=== PATIENT | female | born 1950 | race Caucasian/White ===

== ENCOUNTER → 2022-02-07 12:40 | Outpatient (CLI) | payer MEDICARE, SELFPAY | PROVIDERS: PCP Physician Assistant Medical; Visit Provider Physician Assistant Medical | DX: E11.8 Type 2 diabetes mellitus with unspecified complications (principal) | CPT/HCPCS: 87070; 87075; 87077; 87186; 87205 ==

== ENCOUNTER → 2022-02-14 11:53 | Outpatient (CLI) | payer MEDICARE, SELFPAY ==
[2022-02-14 18:46] LABS: Add Manual Diff / Slide Review NO; Basophils Absolute Auto 100 /uL (0-100); Basophils Percent Auto 1.3 % (0-2); Eosinophils Absolute Auto 0 /uL (0-450); Eosinophils Percent Auto 0.1 % (2-4); Hematocrit 34.5 % (36-46); Lymphocytes Absolute Auto 1100 /uL (1100-4500); Mean Corpuscular HGB Conc 34.9 % (30-36); Mean Corpuscular Hemoglobin 31.8 PG (26-34); Mean Corpuscular Volume 91.2 fL (80-100); Monocytes Absolute Auto 300 /uL (0-900); Monocytes Percent Auto 5.4 % (3-14); Neutrophils Absolute Auto 4100 /uL (1500-7000); Neutrophils Percent Auto 74.2 % (50-75); Platelet Count 188 X10^3/uL (150-400); Red Blood Cell Count 3.78 X10^6/uL (4.0-5.2); Red Cell Distribution Width 13.6 % (11.6-14.8); White Blood Cell Count 5.5 X10^3/uL (4.5-11.0)
[2022-02-17 07:44] LABS: Fecal Immunochemical Test Negative (Negative)
== END ==
PROVIDERS: PCP Physician Assistant Medical; Visit Provider Physician Assistant Medical
DX: E11.9 Type 2 diabetes mellitus without complications (principal); E78.5 Hyperlipidemia, unspecified; K76.9 Liver disease, unspecified; Z13.0 Encounter for screening for diseases of the blood and blood-forming organs and certain disorders involving the immune mechanism; Z13.228 Encounter for screening for other metabolic disorders; Z13.29 Encounter for screening for other suspected endocrine disorder
CPT/HCPCS: 82274; 85025

== ENCOUNTER → 2022-02-19 10:49 | Outpatient (CLI) | payer MEDICARE, SELFPAY ==
[2022-02-19 11:43] LABS: Add Manual Diff / Slide Review NO; Basophils Absolute Auto 0 /uL (0-100); Eosinophils Absolute Auto 0 /uL (0-450); Eosinophils Percent Auto 0.1 % (2-4); Hematocrit 34.9 % (36-46); Hemoglobin 11.6 g/dL (12.0-16.0); Lymphocytes Absolute Auto 1100 /uL (1100-4500); Lymphocytes Percent Auto 27.1 % (25-40); Mean Corpuscular HGB Conc 33.3 % (30-36); Mean Corpuscular Hemoglobin 30.4 PG (26-34); Mean Corpuscular Volume 91.2 fL (80-100); Monocytes Absolute Auto 300 /uL (0-900); Monocytes Percent Auto 6.9 % (3-14); Neutrophils Absolute Auto 2600 /uL (1500-7000); Neutrophils Percent Auto 64.9 % (50-75); Platelet Count 111 X10^3/uL (150-400); Red Blood Cell Count 3.82 X10^6/uL (4.0-5.2); Red Cell Distribution Width 14.1 % (11.6-14.8); White Blood Cell Count 4.1 X10^3/uL (4.5-11.0)
[2022-02-19 12:20] LABS: TSH w/ Reflex to FT4 0.95 uIU/mL (0.47-4.68)
[2022-02-19 13:12] LABS: Hemoglobin A1C% w Est Avg Glu 5.9 % (4.0-6.0)
[2022-02-19 13:25] LABS: Alanine Aminotransferase 26 IU/L (<35); Albumin 4.5 g/dL (3.5-5.0); Albumin Globulin Ratio 1.3 (1.0-2.8); Alkaline Phosphatase 213 U/L (38-126); Aspartate Aminotransferase 39 IU/L (14-36); BUN Creatinine Ratio 21.3 (6-22); Bilirubin Total 0.6 mg/dL (0.2-1.3); Blood Urea Nitrogen 33 mg/dL (7-17); Calcium 9.6 mg/dL (8.4-10.2); Carbon Dioxide 18 mmol/L (22-32); Chloride 103 mmol/L (98-107); Cholesterol 159 mg/dL (140-199); Estimated Glomerular Filt Rate 36 mL/min (>60); Globulin 3.5 g/dL (1.7-4.1); Glucose 124 mg/dL (80-110); HDL Cholesterol 67 mg/dL (40-60); HEMOLYSIS < 15 (0-50); LDL Cholesterol Calculated 69 mg/dL (<100); Potassium 4.5 mmol/L (3.4-5.1); Sodium 136 mmol/L (137-145); Triglycerides 117 mg/dL (35-150)
== END ==
PROVIDERS: PCP Physician Assistant Medical; Referring Provider Physician Assistant Medical; Visit Provider Physician Assistant Medical
DX: E11.9 Type 2 diabetes mellitus without complications (principal); E11.8 Type 2 diabetes mellitus with unspecified complications; E78.5 Hyperlipidemia, unspecified; I10 Essential (primary) hypertension; K76.9 Liver disease, unspecified; M06.9 Rheumatoid arthritis, unspecified; R60.1 Generalized edema; Z87.898 Personal history of other specified conditions
CPT/HCPCS: 80053; 80061; 83036; 84443; 85025

== ENCOUNTER → 2022-03-13 09:43 | Outpatient (CLI) | payer MEDICARE, SELFPAY ==
[2022-03-13 20:53] LABS: Add Manual Diff / Slide Review NO; Basophils Absolute Auto 0 /uL (0-100); Basophils Percent Auto 1.1 % (0-2); Eosinophils Absolute Auto 0 /uL (0-450); Eosinophils Percent Auto 0.3 % (2-4); Hematocrit 35.6 % (36-46); Hemoglobin 11.7 g/dL (12.0-16.0); Lymphocytes Absolute Auto 1000 /uL (1100-4500); Lymphocytes Percent Auto 23.3 % (25-40); Mean Corpuscular HGB Conc 32.8 % (30-36); Mean Corpuscular Volume 91.5 fL (80-100); Monocytes Absolute Auto 300 /uL (0-900); Monocytes Percent Auto 7.1 % (3-14); Neutrophils Absolute Auto 3000 /uL (1500-7000); Neutrophils Percent Auto 68.2 % (50-75); Platelet Count 109 X10^3/uL (150-400); Red Blood Cell Count 3.89 X10^6/uL (4.0-5.2); Red Cell Distribution Width 14.2 % (11.6-14.8); White Blood Cell Count 4.4 X10^3/uL (4.5-11.0)
[2022-03-13 21:00] LABS: Alanine Aminotransferase 28 IU/L (<35); Albumin 4.4 g/dL (3.5-5.0); Albumin Globulin Ratio 1.4 (1.0-2.8); Alkaline Phosphatase 199 U/L (38-126); Aspartate Aminotransferase 40 IU/L (14-36); BUN Creatinine Ratio 23.8 (6-22); Bilirubin Total 0.7 mg/dL (0.2-1.3); Blood Urea Nitrogen 24 mg/dL (7-17); Calcium 9.8 mg/dL (8.4-10.2); Carbon Dioxide 25 mmol/L (22-32); Chloride 104 mmol/L (98-107); Estimated Glomerular Filt Rate 60 mL/min (>60); Globulin 3.2 g/dL (1.7-4.1); Glucose 126 mg/dL (80-110); HEMOLYSIS < 15 (0-50); Sodium 142 mmol/L (137-145); Total Protein 7.6 g/dL (6.3-8.2)
[2022-03-13 21:10] LABS: Creatinine Urine Random 19.8 mg/dL
[2022-03-13 21:20] LABS: Microalbumin Urine Random < 0.6 mg/dL (0-1.6)
[2022-03-13 22:08] LABS: Gamma Glutamyl Transpeptidase 81 U/L (12-43)
== END ==
PROVIDERS: PCP Physician Assistant Medical; Visit Provider Physician Assistant Medical
DX: E11.9 Type 2 diabetes mellitus without complications (principal); M79.673 Pain in unspecified foot; R79.89 Other specified abnormal findings of blood chemistry; E78.5 Hyperlipidemia, unspecified; K76.9 Liver disease, unspecified; N28.9 Disorder of kidney and ureter, unspecified; R60.9 Edema, unspecified; R74.8 Abnormal levels of other serum enzymes
CPT/HCPCS: 80053; 82043; 82570; 82977; 85025; 87070; 87075; 87077; 87147; 87186; 87205

== ENCOUNTER → 2022-03-14 10:51 | Outpatient (CLI) | payer MEDICARE, SELFPAY | PROVIDERS: PCP Physician Assistant Medical; Referring Provider Podiatrist; Visit Provider Surgery | DX: E11.621 Type 2 diabetes mellitus with foot ulcer (principal); L97.512 Non-pressure chronic ulcer of other part of right foot with fat layer exposed; E11.40 Type 2 diabetes mellitus with diabetic neuropathy, unspecified; L84 Corns and callosities | CPT/HCPCS: 11042; 87070; 87075; 87077; 87147; 87186; 87205; 99204; 99214 ==

== ENCOUNTER → 2022-03-19 10:53 | Outpatient (CLI) | payer MEDICARE, SELFPAY ==
[2022-03-19 19:36] LABS: Add Manual Diff / Slide Review NO; Basophils Absolute Auto 0 /uL (0-100); Basophils Percent Auto 0.9 % (0-2); Eosinophils Absolute Auto 0 /uL (0-450); Hematocrit 32.5 % (36-46); Hemoglobin 10.8 g/dL (12.0-16.0); Lymphocytes Absolute Auto 900 /uL (1100-4500); Mean Corpuscular HGB Conc 33.1 % (30-36); Mean Corpuscular Volume 90.6 fL (80-100); Monocytes Absolute Auto 300 /uL (0-900); Monocytes Percent Auto 8.1 % (3-14); Neutrophils Absolute Auto 2300 /uL (1500-7000); Platelet Count 102 X10^3/uL (150-400); Red Blood Cell Count 3.58 X10^6/uL (4.0-5.2); Red Cell Distribution Width 14.6 % (11.6-14.8); White Blood Cell Count 3.5 X10^3/uL (4.5-11.0)
[2022-03-19 19:42] LABS: C-Reactive Protein Quant 0.8 mg/dL (<1.0)
[2022-03-19 20:01] LABS: Erythrocyte Sedimentation Rate 32 MM/HR (0-20)
== END ==
PROVIDERS: PCP Physician Assistant Medical; Visit Provider Nurse Practitioner Family
DX: E11.9 Type 2 diabetes mellitus without complications (principal); E11.621 Type 2 diabetes mellitus with foot ulcer; E11.8 Type 2 diabetes mellitus with unspecified complications; L97.509 Non-pressure chronic ulcer of other part of unspecified foot with unspecified severity
CPT/HCPCS: 85025; 85651; 86140

== ENCOUNTER → 2022-03-21 08:46 | Outpatient (CLI) | payer MEDICARE, SELFPAY | PROVIDERS: PCP Physician Assistant Medical; Referring Provider Podiatrist; Visit Provider Nurse Practitioner Family | DX: E11.621 Type 2 diabetes mellitus with foot ulcer (principal); L97.512 Non-pressure chronic ulcer of other part of right foot with fat layer exposed; E11.40 Type 2 diabetes mellitus with diabetic neuropathy, unspecified; L84 Corns and callosities | CPT/HCPCS: 11042 ==

== ENCOUNTER → 2022-03-28 10:57 | Outpatient (CLI) | payer MEDICARE, SELFPAY | PROVIDERS: PCP Physician Assistant Medical; Referring Provider Physician Assistant Medical; Visit Provider Nurse Practitioner Family | DX: E11.621 Type 2 diabetes mellitus with foot ulcer (principal); L97.512 Non-pressure chronic ulcer of other part of right foot with fat layer exposed; E11.40 Type 2 diabetes mellitus with diabetic neuropathy, unspecified | CPT/HCPCS: 15275; Q4196 ==

== ENCOUNTER → 2022-04-03 11:22 | Outpatient (CLI) | payer MEDICARE, SELFPAY | PROVIDERS: PCP Physician Assistant Medical; Referring Provider Physician Assistant Medical; Visit Provider Surgery | DX: E11.621 Type 2 diabetes mellitus with foot ulcer (principal); L97.512 Non-pressure chronic ulcer of other part of right foot with fat layer exposed | CPT/HCPCS: 99213 ==

== ENCOUNTER → 2022-04-11 11:03 | Outpatient (CLI) | payer MEDICARE, SELFPAY | PROVIDERS: PCP Physician Assistant Medical; Referring Provider Physician Assistant Medical; Visit Provider Nurse Practitioner Family | DX: E11.621 Type 2 diabetes mellitus with foot ulcer (principal); L97.512 Non-pressure chronic ulcer of other part of right foot with fat layer exposed; L84 Corns and callosities; E11.40 Type 2 diabetes mellitus with diabetic neuropathy, unspecified | CPT/HCPCS: 15275; Q4196 ==

== ENCOUNTER → 2022-04-18 08:58 | Outpatient (CLI) | payer MEDICARE, SELFPAY | PROVIDERS: PCP Physician Assistant Medical; Referring Provider Podiatrist; Visit Provider Nurse Practitioner Family | DX: E11.621 Type 2 diabetes mellitus with foot ulcer (principal); L97.512 Non-pressure chronic ulcer of other part of right foot with fat layer exposed; E11.40 Type 2 diabetes mellitus with diabetic neuropathy, unspecified; L84 Corns and callosities | CPT/HCPCS: 11042 ==

== ENCOUNTER → 2022-04-18 09:40 | Outpatient (CLI) | payer MEDICARE, SELFPAY ==
[2022-04-18 11:30] LABS: Hemoglobin 11.7 g/dL (12.0-16.0)
[2022-04-18 11:53] LABS: BUN Creatinine Ratio 30.3 (6-22); Blood Urea Nitrogen 30 mg/dL (7-17); Calcium 9.5 mg/dL (8.4-10.2); Carbon Dioxide 25 mmol/L (22-32); Chloride 99 mmol/L (98-107); Estimated Glomerular Filt Rate > 60 mL/min (>60); Glucose 111 mg/dL (80-110); HEMOLYSIS < 15 (0-50); Potassium 3.9 mmol/L (3.4-5.1); Sodium 138 mmol/L (137-145)
[2022-04-18 12:07] LABS: Creatinine Urine Random 40.8 mg/dL; Protein (Total) Urine Random < 5 mg/dL (0-12); Protein Creatinine Ratio Urine 0.12 GRAM/24H
== END ==
PROVIDERS: PCP Physician Assistant Medical; Referring Provider Student in an Organized Health Care Education/Training Program; Visit Provider Student in an Organized Health Care Education/Training Program
DX: N05.9 Unspecified nephritic syndrome with unspecified morphologic changes; D64.9 Anemia, unspecified; R80.9 Proteinuria, unspecified
CPT/HCPCS: 36415; 80048; 82570; 84156; 85014; 85018

== ENCOUNTER → 2022-04-25 09:26 | Outpatient (CLI) | payer MEDICARE, SELFPAY | PROVIDERS: PCP Physician Assistant Medical; Referring Provider Physician Assistant Medical; Visit Provider Nurse Practitioner Family | DX: E11.621 Type 2 diabetes mellitus with foot ulcer (principal); L97.512 Non-pressure chronic ulcer of other part of right foot with fat layer exposed; L84 Corns and callosities; E11.40 Type 2 diabetes mellitus with diabetic neuropathy, unspecified | CPT/HCPCS: 15275; Q4196 ==

== ENCOUNTER → 2022-05-02 13:11 | Outpatient (CLI) | payer MEDICARE, SELFPAY | PROVIDERS: PCP Physician Assistant Medical; Referring Provider Physician Assistant Medical; Visit Provider Nurse Practitioner Family | DX: L97.512 Non-pressure chronic ulcer of other part of right foot with fat layer exposed (principal); E11.621 Type 2 diabetes mellitus with foot ulcer; E11.40 Type 2 diabetes mellitus with diabetic neuropathy, unspecified; L84 Corns and callosities | CPT/HCPCS: 11042 ==

== ENCOUNTER → 2022-05-16 09:05 | Outpatient (CLI) | payer MEDICARE, SELFPAY | PROVIDERS: PCP Physician Assistant Medical; Referring Provider Podiatrist; Visit Provider Nurse Practitioner Family | DX: N18.2 Chronic kidney disease, stage 2 (mild) (principal); L97.512 Non-pressure chronic ulcer of other part of right foot with fat layer exposed; E11.621 Type 2 diabetes mellitus with foot ulcer; E11.40 Type 2 diabetes mellitus with diabetic neuropathy, unspecified; L84 Corns and callosities | CPT/HCPCS: 76770; 99213 ==

== ENCOUNTER → 2022-05-16 13:21 | Outpatient (CLI) | payer MEDICARE, SELFPAY ==
--- NOTE | 2022-05-16 | DI.US.S_ITS ---
PROCEDURE: US RENAL COMPLETE INDICATIONS: CHRONIC KIDNEY DISEASE, STAGE 2 (MILD) TECHNIQUE: Real-time scanning was performed of the kidneys and bladder, with image documentation. COMPARISON: None. FINDINGS: Kidneys: Kidneys are normal in size. Right kidney measures 10.3 cm long; left kidney measures 10.7 cm long. Right renal cortical thickness is 1.3 cm; left renal cortical thickness is 1.4 cm. Renal cortical echotexture is normal. No hydronephrosis or nephrolithiasis. No suspicious solid mass lesions. Bladder: Pre-void bladder volume is 83.2 mL. Post-void residual is 21.0 mL. Pre-void images demonstrate no intraluminal masses or stones. On pre-void images, left but not the right ureteral jets are noted with color Doppler interrogation. (Of note, ureteral jets may not be detectable in up to 25% of cases due to insufficient differences in specific gravity between ureteral and bladder urine). Miscellaneous: No free pelvic fluid. IMPRESSION: Normal renal size is and cortical thickness, no hydronephrosis or nephrolithiasis found. Mild postvoid bladder residual urine volume. Dictated by: Serjio Jones M.D. on 05/16/2022 at 15:25 Approved by: Serjio Jones M.D. on 05/16/2022 at 15:26
== END ==
PROVIDERS: PCP Physician Assistant Medical; Referring Provider Student in an Organized Health Care Education/Training Program; Visit Provider Student in an Organized Health Care Education/Training Program
DX: N18.2 Chronic kidney disease, stage 2 (mild) (principal)
CPT/HCPCS: 76770

== ENCOUNTER 2022-07-10 11:59 | Day surgery (SDC) | payer MEDICARE, SELFPAY ==
[2022-07-10 13:08] VITALS: BP 155/87; PULSE 92; RESP 16; TEMP 36.2; O2SAT 99; BMI 27.5
[2022-07-10] MEDS: LACTATED RINGERS 1,000 ML 120 ML IV (13:41)
--- NOTE | 2022-07-10 13:53 | PM.HP.1 ---
History of Present Illness History of Present Illness Date Patient Seen: 07/10/22 Time Patient Seen: 13:53 Chief complaint: [facility] [place]arrative: Soledad is a 72-year-old woman who is here for colonoscopy. Her last 1 was about 4 years ago and she had multiple polyps removed. Her father of colon cancer in his 60s. [facility] Medical History (Updated 07/10/22 @ 13:54 by Les Alicea MD) Ankle pain Colon polyps (~2017) Foot pain Hearing loss (~2019) History of urinary incontinence Liver problem Rheumatoid arthritis Vision disorder Surgical History (Updated 12/30/21 @ 20:07 by Karie Jane) Anesthesia History of left knee replacement (~07/28/16) Family History (Updated 12/30/21 @ 20:10 by Karie Jane) Father Cancer Mother Diabetes mellitus History of heart disease Hyperlipidemia Hypertension Stroke Sister Cancer Grandfather Cancer Grandmother Diabetes mellitus Grandmother Diabetes mellitus Social History household members: family Smoking Status: Former smoker alcohol intake: current Meds Home Medications and Allergies Home Medications Medication Instructions Recorded Confirmed Type allopurinol 100 mg tablet 100 mg PO DAILY #90 tabs 12/27/21 07/10/22 Rx benazepril 20 mg tablet 20 mg PO DAILY 12/27/21 07/10/22 History furosemide 20 mg tablet 20 mg PO DAILY 12/27/21 07/10/22 History gabapentin 300 mg capsule 300 mg PO BID #180 caps 12/27/21 07/10/22 Rx simvastatin 40 mg tablet 20 mg PO DAILY 02/07/22 07/10/22 History blood sugar diagnostic (FreeStyle #100 ea 04/16/22 04/16/22 Rx Test strips) blood-glucose meter (FreeStyle #1 ea 04/16/22 04/16/22 Rx [place] Lite kit) lancets 33 gauge (BD Ultra Fine #100 ea 04/16/22 04/16/22 Rx Lancets) sodium,potassium,mag sulfates 17.5 See Rx Instructions PO .COMPLEX 06/03/22 Rx gram-3.13 gram-1.6 gram oral soln #354 mL (Suprep Bowel Prep Kit) ascorbic acid (vitamin C) 250 mg 250 mg PO DAILY 07/10/22 07/10/22 History tablet (Vitamin C) milk thistle 200 mg capsule 200 mg PO BID 07/10/22 07/10/22 History multivit with 1 tab PO DAILY 07/10/22 07/10/22 History xubawvau-xmdb-JH-lutein 8 mg iron-400 mcg-300 mcg tablet (Centrum Silver Women) omega-3 fatty acids 1,000 mg PO DAILY 07/10/22 07/10/22 History turmeric 400 mg capsule mg PO 07/10/22 History vitamin B complex 1 cap PO DAILY 07/10/22 07/10/22 History Allergies Allergy/AdvReac Type Severity Reaction Status Date / Time No Known Drug Allergies Allergy Verified 04/16/22 08:44 Exam Vital Signs (past 8 hours): - 07/10/22 13:08 Temperature 97.1 F L Pulse Rate 92 H Respiratory Rate 16 Blood Pressure 155/87 H Pulse Oximetry 99 Oxygen Delivery Method Room Air Oxygen Delivery Method Room Air Const General: healthy appearing Assessment & Plan Assessment and plan (1) History of colon polyps: Status: Acute Plan Soledad is a 72-year-old woman with a history of polyps and a family history of colon cancer. We reviewed the risks and benefits of colonoscopy She would like to proceed.
--- NOTE | 2022-07-10 14:58 | P.OP.COLON_ITS ---
Operative Date/Time/Diagnoses Date of procedure: 07/10/22 Time of procedure: 14:59 Pre-op diagnosis: History of polyps Post-op diagnosis: same Procedure & Clinicians Study performed: Colonoscopy Same procedure as scheduled: Yes Surgeon: Les Alicea Procedure Notes Procedure in detail: Surgeon: Les Alicea MD Anesthesia: Rody Garcia [employer] Procedure: The patient was brought to the endoscopy suite, placed in left lateral decubitus position. The patient was connected to monitoring devices. A time-out was performed. Sedation was administered. Once the patient was adequately sedated, a digital rectal exam was performed and was normal. The scope was then inserted and advanced to the cecum where the appendiceal orifice was identified and photographed. The scope was then slowly withdrawn over greater than 6 minutes. The mucosa was thoroughly inspected. No polyps were seen. The scope was retroflexed in the rectum. No abnormalities were seen. The scope was straightened and removed. The patient was awakened and brought to recovery. Scope withdrawal time: 12 minutes Sedation time: 18 minutes EBL: 0 Findings: Normal colon Post-procedure Disposition: PACU
[2022-07-10 15:01] VITALS: BP 124/77; PULSE 74; RESP 20; TEMP 36.4; O2SAT 99
[2022-07-10 15:06] VITALS: BP 134/50; PULSE 77; RESP 20; O2SAT 98
[2022-07-10 15:11] VITALS: BP 143/79; PULSE 79; RESP 19; O2SAT 98
== END 2022-07-10 15:14 | disposition home or self-care (01) ==
PROVIDERS: PCP Physician Assistant Medical; Referring Provider Surgery; Visit Provider Surgery
PROC: 0DJD8ZZ Inspection of Lower Intestinal Tract, Via Natural or Artificial Opening Endoscopic (ICD-10-PCS; CPT 45378; principal; 2022-07-10 13:15)
DX: Z12.11 Encounter for screening for malignant neoplasm of colon (principal); Z86.010 Personal history of colon polyps; Z80.0 Family history of malignant neoplasm of digestive organs
CPT/HCPCS: G0105; 82962; J2704

== ENCOUNTER → 2022-07-29 12:25 | Outpatient (CLI) | payer MEDICARE, SELFPAY ==
--- NOTE | 2022-07-29 12:27 | DI.CT.S_ITS ---
PROCEDURE: CT CHEST WO CON INDICATIONS: pulmonary nodule TECHNIQUE: Noncontrast 5 mm thick sections acquired from the pulmonary apices to the posterior costophrenic angles. 1 mm lung window, 5 mm thick coronal and sagittal and 7 mm axial MIP reformats were then acquired. For radiation dose reduction, the following was used: automated exposure control, adjustment of mA and/or kV according to patient size. COMPARISON: CT 05/21/2021. FINDINGS: Image quality: Excellent. Lungs and pleura: A few solid pulmonary micro nodules which appear new from prior. These include: -2 mm solid nodule, anterior right upper lobe (series 3, image 80). -2 mm solid nodule, superior left lower lobe (series 3, image 105). Mediastinum: Heart size is normal. No pericardial effusion. No mediastinal adenopathy by size criteria. Thoracic aorta and central pulmonary arteries are normal in size. Esophagus is normal in caliber. No hiatal hernia. Bones and chest wall: No suspicious bony lesions. No vertebral body compression fractures. No axillary or supraclavicular adenopathy by size criteria. Thyroid gland is unremarkable . Abdomen: Interval growth of a right adrenal nodule measuring 3.9 cm, previously 3.7 cm. This has indeterminate attenuation. Borderline splenomegaly. Soft tissue mass in the right upper quadrant measuring 3.0 cm (series 2, image 55). Cirrhosis. IMPRESSION: A couple pulmonary micro nodules which appear new from prior. No suspicious pulmonary nodules. Consider 12 month follow-up if at high risk for developing lung cancer, per Fleischner Society guidelines. Large right adrenal nodule measuring 3.9 cm, previously 3.7 cm, with indeterminate attenuation. Malignancy not excluded, especially given size. Recommend MRI for further characterization (liver mass protocol, see below). Soft tissue mass in the right upper quadrant measuring 3.0 cm, not seen on prior, and indeterminate. This could be further evaluated with liver MRI with contrast. Cirrhosis with splenomegaly. Dictated by: Quincy Bowen M.D. on 08/14/2022 at 9:28 Approved by: Quincy Bowen M.D. on 08/14/2022 at 9:33
== END ==
PROVIDERS: PCP Family Medicine; Referring Provider Family Medicine; Visit Provider Family Medicine
DX: R91.8 Other nonspecific abnormal finding of lung field; R16.1 Splenomegaly, not elsewhere classified; K74.60 Unspecified cirrhosis of liver; E11.42 Type 2 diabetes mellitus with diabetic polyneuropathy; E11.621 Type 2 diabetes mellitus with foot ulcer; L97.519 Non-pressure chronic ulcer of other part of right foot with unspecified severity
CPT/HCPCS: 71250; 73660

== ENCOUNTER → 2022-07-29 12:27 | Outpatient (CLI) | payer MEDICARE, SELFPAY ==
--- NOTE | 2022-07-29 | DI.RAD.S_ITS ---
PROCEDURE: XR TOE RT MIN 2V INDICATIONS: RULE OUT OSTEOMYELITIS TECHNIQUE: 3 views of the 1st toe(s) acquired. COMPARISON: [facility] ([place]), CR, XR FOOT RT MIN 3V, 03/19/2022, 10:35. FINDINGS: Bones: There is slight irregularity of the distal tuft of the 1st digit compared to prior exam. Soft tissues: No suspicious soft tissue densities. IMPRESSION: Slight irregularity of the distal 1st digit tuft compared to prior exam. Early developing osteomyelitis cannot be definitively excluded. Dictated by: Araceli Shafer M.D. on 07/29/2022 at 14:54 Approved by: Araceli Shafer M.D. on 07/29/2022 at 14:55
== END ==
PROVIDERS: PCP Family Medicine; Referring Provider Podiatrist Foot & Ankle Surgery; Visit Provider Podiatrist Foot & Ankle Surgery
DX: Z13.828 Encounter for screening for other musculoskeletal disorder (principal)
CPT/HCPCS: 73660

== ENCOUNTER → 2022-07-30 14:10 | Outpatient (CLI) | payer MEDICARE, SELFPAY ==
[2022-07-30 20:19] LABS: Add Manual Diff / Slide Review NO; Basophils Absolute Auto 0 /uL (0-100); Basophils Percent Auto 0.9 % (0-2); Eosinophils Absolute Auto 0 /uL (0-450); Eosinophils Percent Auto 0.1 % (2-4); Hematocrit 34.6 % (36-46); Hemoglobin 11.8 g/dL (12.0-16.0); Lymphocytes Absolute Auto 1000 /uL (1100-4500); Mean Corpuscular HGB Conc 34.1 % (30-36); Mean Corpuscular Hemoglobin 31.3 PG (26-34); Mean Corpuscular Volume 91.8 fL (80-100); Monocytes Absolute Auto 300 /uL (0-900); Monocytes Percent Auto 6.4 % (3-14); Neutrophils Absolute Auto 3500 /uL (1500-7000); Neutrophils Percent Auto 72.6 % (50-75); Platelet Count 112 X10^3/uL (150-400); Red Blood Cell Count 3.77 X10^6/uL (4.0-5.2); Red Cell Distribution Width 14.4 % (11.6-14.8); White Blood Cell Count 4.8 X10^3/uL (4.5-11.0)
[2022-07-30 20:27] LABS: Alanine Aminotransferase 27 IU/L (<35); Albumin 4.3 g/dL (3.5-5.0); Albumin Globulin Ratio 1.5 (1.0-2.8); Alkaline Phosphatase 224 U/L (38-126); Aspartate Aminotransferase 37 IU/L (14-36); BUN Creatinine Ratio 21.6 (6-22); Bilirubin Total 0.7 mg/dL (0.2-1.3); Blood Urea Nitrogen 22 mg/dL (7-17); Calcium 9.5 mg/dL (8.4-10.2); Carbon Dioxide 24 mmol/L (22-32); Chloride 103 mmol/L (98-107); Estimated Glomerular Filt Rate 58 mL/min (>60); Globulin 2.8 g/dL (1.7-4.1); Glucose 112 mg/dL (80-110); HEMOLYSIS < 15 (0-50); Potassium 4.3 mmol/L (3.4-5.1); Sodium 137 mmol/L (137-145); Total Protein 7.1 g/dL (6.3-8.2); Uric Acid 6.9 mg/dL (2.5-6.2)
[2022-07-30 20:34] LABS: NT-proBNP (BNP-Adult 18+) 269 pg/mL (<125)
[2022-07-30 21:31] LABS: Folate > 20.0 ng/mL (2.76-20.0)
[2022-07-31 02:58] LABS: Free T4, Direct Thyroxine 1.06 ng/dL (0.78-2.19)
[2022-07-31 23:41] LABS: x Labcorp Estim. Avg Glu (eAG) 120 mg/dL (.); x Labcorp Hemoglobin A1c 5.8 % (4.8-5.6)
[2022-08-08 14:40] LABS: Methylmalonic Acid,Serum 148 nmol/L (0-378)
[2022-08-15 00:16] LABS: Vitamin B1 170.3 nmol/L (66.5-200.0)
== END ==
PROVIDERS: PCP Family Medicine; Visit Provider Family Medicine
DX: D69.6 Thrombocytopenia, unspecified; R60.1 Generalized edema; E11.9 Type 2 diabetes mellitus without complications; G62.9 Polyneuropathy, unspecified; I10 Essential (primary) hypertension; F10.20 Alcohol dependence, uncomplicated; R79.89 Other specified abnormal findings of blood chemistry; R06.00 Dyspnea, unspecified; M10.9 Gout, unspecified
CPT/HCPCS: 80053; 82746; 83036; 83880; 83921; 84425; 84439; 84443; 84550; 85025

== ENCOUNTER → 2022-08-12 10:59 | Outpatient (CLI) | payer MEDICARE, SELFPAY ==
--- NOTE | 2022-08-12 | DI.MRI.S_ITS ---
PROCEDURE: MR FOOT RT WO/W CON INDICATIONS: Other acute osteomyelitis, right ankle and foot TECHNIQUE: Noncontrast sagittal T1 spin echo and T2 fast spin echo with fat saturation, long-axis T1 spin echo and STIR; short-axis T1 spin echo with and without fat saturation, and T2 fast spin echo with fat saturation through the forefoot. Post-contrast short axis, long axis, and sagittal T1 spin echo with fat saturation through the forefoot. COMPARISON: [facility] CR, XR FOOT RT MIN 3V, 03/19/2022, 10:35. [facility], CR, XR TOE RT MIN 2V, 07/29/2022, 12:37. FINDINGS: Image quality: Excellent. Bones and joints: Chronic osseous irregularity is seen at the lateral portion of the tuft of the 1st distal phalanx without abnormal signal intensity or enhancement, consistent with a chronic finding. Hammertoe deformities are noted at the 2nd through 5th toes. Mild osseous edema and enhancement are seen throughout the distal phalanges of the toes. There is decreased intrinsic T1-weighted signal within the 2nd and 4th distal phalanges adjacent to apparent skin ulcers, which is suspicious for osteomyelitis. Moderate degenerative changes are seen within the interphalangeal joints of the toes as well as at the 1st metatarsophalangeal joint and metatarsal sesamoid articulations. Subchondral edema within the hallux sesamoids is most likely degenerative. Mild nonspecific osseous edema is seen within the lateral portion of the cuboid without a clearly defined fracture line. Soft tissues: Skin irregularity is seen at the distal aspect of the 4th toe with associated soft tissue edema and enhancement. There may be mild skin irregularity of the distal aspect of the 2nd toe with mild postcontrast enhancement. No focal fluid collection or abscess is seen. There is diffuse fatty infiltration of the intrinsic foot musculature, consistent with chronic denervation changes. Nonspecific soft tissue edema is seen at the dorsum of the foot. Visualized flexor and extensor tendons appear intact, without tenosynovitis. The principal Lisfranc ligament appears intact. Sagittal images demonstrate no evidence for plantar plate tears. IMPRESSION: 1. Within the distal 4th toe, there is subcutaneous edema and enhancement with suspected overlying skin ulceration. Abnormal signal intensity within the adjacent 4th distal phalanx is suspicious for osteomyelitis. 2. Similar but less prominent findings are seen at the 2nd distal phalanx, mildly suspicious for osteomyelitis. 3. Osseous edema within the lateral portion of the cuboid is suspicious for an osseous contusion or acute stress reaction. No discrete fracture line is seen. 4. Chronic remodeling is seen at the tuft of the 1st distal phalanx as seen radiographically without abnormal signal intensity, most likely related to a remote insult or chronic remodeling rather than active infection. 5. Moderate degenerative changes at the 1st metatarsophalangeal joint and metatarsal sesamoid articulations. 6. Fatty infiltration of the intrinsic foot musculature is consistent with chronic denervation changes. Approved by: Silvio Drummond M.D. on 08/12/2022 at 20:20
== END ==
PROVIDERS: PCP Family Medicine; Referring Provider Podiatrist Foot & Ankle Surgery; Visit Provider Podiatrist Foot & Ankle Surgery
DX: M86.171 Other acute osteomyelitis, right ankle and foot (principal)
CPT/HCPCS: 73720; A9579

== ENCOUNTER → 2022-08-19 16:23 | Outpatient (CLI) | payer MEDICARE, SELFPAY ==
--- NOTE | 2022-08-19 16:29 | DI.MRI.S_ITS ---
PROCEDURE: MR ABDOMEN LIVER PROTOCOL INDICATIONS: Right adrenal mass and soft tissue mass in RUQ on chest CT TECHNIQUE: Coronal HASTE, axial 2D FLASH in- and [id number]; axial breath-hold T2 FSE. Dynamic axial VIBE during the administration of contrast; post-contrast coronal VIBE or 2D FLASH with fat saturation from the hepatic dome to the iliac crests. Optional diffusion weighted imaging and ADC may be performed. COMPARISON: None. FINDINGS: Image quality: Excellent. Lung bases: No basal pleural effusions. Heart size is normal. Liver: No solid mass. Gallbladder and biliary tree: No gallstones or biliary dilation. Spleen: Normal size. Pancreas: No ductal dilation. Adrenal glands: 3.6 centimeter right adrenal nodule with signal intensity index of 42 percent. The lesion demonstrates mild T1 heterogeneous signal. Kidneys: No hydronephrosis. No solid mass. No complex renal cysts which requires follow-up. Nodes and vessels: No retroperitoneal or mesenteric adenopathy by size criteria. Aorta and inferior vena cava are normal in size. Bowel and peritoneum: Unenhanced bowel loops are normal in caliber. No free fluid. In the right upper quadrant, there is a 3.1 x 1.6 centimeter lesion without significant enhancement and no restricted diffusion, located anterior to the liver (series 12, image 34). Bones and soft tissues: No ventral hernias. Bone marrow is normal in overall signal. IMPRESSION: The right adrenal nodule has signal intensity which favors a benign adrenal adenoma. However, given size and heterogeneous intensity, pheochromocytoma or less likely adrenal cortical malignancy remain in the differential. follow-up in [address] with contrast is advised. The right upper quadrant nodule in the right upper quadrant does not demonstrate significant enhancement, and no restricted diffusion. Findings probably represent a sequela of peritoneal fat necrosis. Attention on follow-up. Dictated by: Quincy Bowen M.D. on 08/20/2022 at 8:34 Approved by: Quincy Bowen M.D. on 08/20/2022 at 8:43
== END ==
PROVIDERS: PCP Family Medicine; Referring Provider Family Medicine; Visit Provider Family Medicine
DX: E27.8 Other specified disorders of adrenal gland (principal); M79.89 Other specified soft tissue disorders
CPT/HCPCS: 74183; A9579

== ENCOUNTER → 2022-09-10 11:00 | Outpatient (CLI) | payer MEDICARE, SELFPAY ==
[2022-09-10 12:30] LABS: INR 1.1 (0.9-1.3); Prothrombin Time 12.3 SECONDS (10.1-12.7)
[2022-09-10 12:33] LABS: PTT Partial Thromboplastin Tim 34 SECONDS (26-36)
[2022-09-10 12:34] LABS: Add Manual Diff / Slide Review NO; Basophils Absolute Auto 0 /uL (0-100); Basophils Percent Auto 0.9 % (0-2); Eosinophils Absolute Auto 0 /uL (0-450); Eosinophils Percent Auto 0.3 % (2-4); Hematocrit 35.7 % (36-46); Hemoglobin 12.1 g/dL (12.0-16.0); Lymphocytes Absolute Auto 1100 /uL (1100-4500); Lymphocytes Percent Auto 20.3 % (25-40); Mean Corpuscular Hemoglobin 30.9 PG (26-34); Monocytes Absolute Auto 300 /uL (0-900); Monocytes Percent Auto 6.7 % (3-14); Neutrophils Absolute Auto 3700 /uL (1500-7000); Neutrophils Percent Auto 71.8 % (50-75); Platelet Count 101 X10^3/uL (150-400); Red Blood Cell Count 3.92 X10^6/uL (4.0-5.2); Red Cell Distribution Width 13.6 % (11.6-14.8); White Blood Cell Count 5.2 X10^3/uL (4.5-11.0)
[2022-09-10 12:39] LABS: HEMOLYSIS < 15 (0-50); Iron 91 ug/dL (37-170)
[2022-09-10 12:42] LABS: Alanine Aminotransferase 27 IU/L (<35); Albumin 4.2 g/dL (3.5-5.0); Albumin Globulin Ratio 1.5 (1.0-2.8); Alkaline Phosphatase 245 U/L (38-126); Aspartate Aminotransferase 34 IU/L (14-36); BUN Creatinine Ratio 26.2 (6-22); Bilirubin Total 0.5 mg/dL (0.2-1.3); Blood Urea Nitrogen 27 mg/dL (7-17); Calcium 9.5 mg/dL (8.4-10.2); Carbon Dioxide 29 mmol/L (22-32); Chloride 102 mmol/L (98-107); Estimated Glomerular Filt Rate 58 mL/min (>60); Globulin 2.8 g/dL (1.7-4.1); Glucose 98 mg/dL (80-110); HEMOLYSIS < 15 (0-50); Potassium 4.6 mmol/L (3.4-5.1); Sodium 138 mmol/L (137-145)
[2022-09-10 12:50] LABS: Percent Iron Saturation 34 % (15-50); Total Iron Binding Capacity 271 ug/dL (265-497); Transferrin 191 mg/dL (206-381)
[2022-09-10 12:57] LABS: Free T3, Triiodothyronine Free 3.99 pg/mL (2.77-5.27); Free T4, Direct Thyroxine 1.05 ng/dL (0.78-2.19)
[2022-09-10 13:10] LABS: Thyroid Stimulating Hormone 0.578 uIU/mL (0.47-4.68)
[2022-09-10 13:16] LABS: Ferritin 72 ng/mL (11-264)
== END ==
PROVIDERS: PCP Family Medicine; Referring Provider Family Medicine; Visit Provider Family Medicine
DX: D64.9 Anemia, unspecified; D69.6 Thrombocytopenia, unspecified; E11.9 Type 2 diabetes mellitus without complications; I10 Essential (primary) hypertension; R79.89 Other specified abnormal findings of blood chemistry; R94.4 Abnormal results of kidney function studies
CPT/HCPCS: 36415; 80053; 82728; 83540; 83550; 84439; 84443; 84481; 85025; 85610; 85730

== ENCOUNTER 2022-09-29 06:37 | Day surgery (SDC) | payer MEDICARE, SELFPAY ==
[2022-09-23 07:21] VITALS: BMI 27.6
--- NOTE | 2022-09-29 | PATH_ITS ---
[facility] Accession Number: [id number] No. of containers..01 Tissue . 01 Material submitted: . toe - RIGHT 4TH TOE . 01 Diagnosis: Right Fourth Toe, Excision: Skin with verrucous hyperkeratosis, epidermal hyperplasia, mixed inflammation, fibrosis, and focal bacterial impetiginization. - Minimal underlying osteocartilaginous tissue. Separate fragment of bone with focal marrow fibrosis and mild chronic inflammation. See comment. MRV 10/09/2022 1741 Local . 01 Comment: Multiple rounds of additional step sections are examined on block A2. The verrucous hyperkeratosis within the skin fragment could represent an irritated verruca vulgaris in the appropriate clinical setting. There is mild squamous atypia associated with the epidermal hyperplasia/verrucous hyperkeratosis, which is overall favored to be reactive in nature. The findings within the separate fragment of bone are not entirely specific; however, no evidence of acute osteomyelitis is identified within the section examined. Clinical and radiographic correlation is suggested. . 01 Electronically signed: . Marcelo Rea MD, Dermatopathologist NPI- [id number] . 01 Gross description: . The specimen is received in formalin labeled with the patient's name, , and right fourth toe, and consists of a portion of skin and soft tissue with possible underlying bone measuring 2.4 x 1.2 x 0.7 cm as well as a separate fragment of osseous tissue measuring 1.1 x 0.6 x 0.5 cm. The cutaneous surface is hamilton with an ulcerated area measuring 1.1 cm in greatest dimension grossly approaching the soft tissue margin, which is inked blue. No nail bed is grossly identified. Sectioning reveals hamilton to brown soft tissue with no underlying bone grossly identified. Sectioning the osseous tissue reveals hamilton trabecular hard tissue that is difficult to section with a scalpel. The specimen is submitted entirely as follows: A1-A2: Entire soft tissue fragment. A3: Osseous tissue following decalcification. ([id number]) /FRR 10/01/2022317 Local . 01 Pathologist provided ICD-10: R23.9 . 01 CPT . 789828, [id number] Specimen Comment: A courtesy copy of this report has been sent to [facility]ology Performed at: 01 [facility] [address] [place] [address], [place], [place] [id number] MD You Stevens MD Phone: [phone]
--- NOTE | 2022-09-29 06:38 | PM.PREOP ---
Pre-operative Note Interval Note History & Physical reviewed/Exam performed by Physician: Yes Changes to H&P: No H&P completed within 30 days and has changed as indicated here:: No changes to pre-op exam in clinic and medical clearance from primary physician. Continue with plan for right foot pes cavus, hammertoes, and chronic ulcer with osteomyelitis. Surgical plan includes: right foot hallux interphalangeal joint fusion, Penaloza tenosuspension, hammertoe arthrodesis/arthroplasty 2 and 3, and partial amputation toe 4.
[2022-09-29 06:54] VITALS: BMI 27.9
[2022-09-29 06:59] VITALS: BP 122/66; PULSE 72; RESP 16; TEMP 36.2; O2SAT 99
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
[2022-09-29] MEDS: LACTATED RINGERS 1,000 ML 42 ML IV ×2 (07:24→09:42)
[2022-09-29 07:34] LABS: Hematocrit 32.6 % (36-46); Hemoglobin 11.1 g/dL (12.0-16.0); Mean Corpuscular HGB Conc 34.1 % (30-36); Mean Corpuscular Hemoglobin 30.8 PG (26-34); Mean Corpuscular Volume 90.2 fL (80-100); Platelet Count 87 X10^3/uL (150-400); Red Blood Cell Count 3.61 X10^6/uL (4.0-5.2); Red Cell Distribution Width 13.4 % (11.6-14.8); White Blood Cell Count 3.4 X10^3/uL (4.5-11.0)
[2022-09-29] MEDS: CEFAZOLIN 2 GM/100 ML PREMIX 100 ML IV (07:55)
--- NOTE | 2022-09-29 08:19 | SUR.OPER ---
Supine on padded OR bed, head on pillow, arms secured on padded arm boards at <90 degrees abduction, legs uncrossed, safety belt over abdomen, tape over blanket over left leg. Right foot in control of surgeon.
[2022-09-29] MEDS: LIDOCAINE 1% 20 ML INJ (08:35)
[2022-09-29 12:35] VITALS: BP 108/68; PULSE 75; RESP 15; TEMP 36.5; O2SAT 97
[2022-09-29 12:42] VITALS: BP 119/68; PULSE 75; RESP 13; TEMP 36.5; O2SAT 96
[2022-09-29 12:50] VITALS: BP 111/55; PULSE 69; RESP 15; TEMP 36.4; O2SAT 98
[2022-09-29 12:53] VITALS: BP 111/56; PULSE 70; RESP 14; TEMP 36.4; O2SAT 96
--- NOTE | 2022-09-30 13:18 | P.OP_ITS ---
Operative Date/Time/Diagnoses Date of procedure: 09/29/22 Time of procedure: 07:45 Pre-op diagnosis: 1. Right foot hallux malleus 2. Right foot hammertoes, digits 2 and 3 3. Right foot pes cavus 4. Right foot osteomyelitis and chronic ulcer, digit 4 Post-op diagnosis: same Procedure & Clinicians Procedure: 1. Right foot hallux interphalangeal joint fusion and Penaloza tenosuspension 2. Right foot hammertoe arthrodesis, digits 2 and 3 3. Right foot partial amputation, toe 4 Same procedure as scheduled: Yes Indications: 1. Right foot calluses and pre-ulcerative lesions 2. Acquired deformities right foot 3. Right foot chronic with radiographic evidence of osteomyelitis 4. DM II with peripheral neuropathy Surgeon: Jakub Campbell Anesthesia Type: General Operative Notes Closure Type: primary Specimen(s): other (Right toe 4) Estimated Blood Loss (mL): 45 Blood products transfused: none Tourniquet time (min): 134 Procedure in detail: The patient was identified and consent obtained. The patient was brought to the operating room and placed on the bed in supine position. Appropriate monitors were then placed, and general anesthesia was induced. Local anesthesia was infiltrated in the right ankle. Once this was done, the right ankle and foot were then prepped and draped in the usual sterile fashion. The leg was elevated, exsanguinated, and tourniquet inflated set to 250 mmHg. Timeout was performed with the operating room all in agreement. Attention was directed to right foot, starting with the first. A long laze S incision was made using # 15 scalpel. Dissection was carried down from skin down tot the subcutaneous tissue using #15 scalpel. Care was taken to protect neurovascular structures. The extensor hallucis tendon was identified and released from the insertion site. The interphalangeal joint of hallux was prepared for fusion with sagittal saw, curette, and drill. It was then fused using two crossing 3.0 mm partially threaded cancellous screws, and position and fixation were verified under fluoroscopy. The dissection was then carried out proximally where the first metatarsophalangeal joint capsule and periosteum were reflected. Decision was made to remove the medial bony eminence. a 3.0 mm corkscrew anchor was replaced at the neck of metatarsal, and the EHL tendon und er tension was secured with suture tapes attached. The tendon was then reinforced using additional non-absorbable 2-0 FiberTape with the foot held in dorsiflexion. The surgical site was irrigated and then closed from deep to superficial 2-0 vicryl, 3-0 vicryl, and 3-0 nylon. Attention was then directed to the right second and third toes. Dorsal linear incisions were made, and dissection was carried from skin down to the level of the bone and joint, and the capsule is reflected. The head of the proximal phalanx was resected under power. The joint was then prepared using the hammer toe system from [place] [id number]. The implants were inserted per manufacture instructions, and additional k-wire was inserted for the second toe. Position and alignment were verified under fluoroscopy. The surgical site were irrigated using saline, and the EDL tendons were re-approximated using 3-0 vicryl. The incision site was then clsed using 4-0 nylon. Attention was then directed to the fourth toe. A distal Syme amputation was performed for partial amputation. The removed bone was sent to lab for evaluation by pathology and microbiology. The proximal stump appeared viable. The incision site was then irrigated copiously using saline and closed using 3-0 vicrl and 4-0 nylon. The procedure sites were cleansed and dried. Dressing included iodine soaked adaptic, fluff gauze, abdominal pads, Kerlix, and elastic bandage. The limb was then placed in posterior splint. All counts were correct. Patient tolerated procedure and anesthesia without complication. Patient was transferred to PACU hemodyanically stable. Complications: none Post-operative Condition: stable Disposition: same day surgery Plan for aftercare: NWB to right lower extremity. Take pain medications as directed. Ice behind knee every 15 min/hr. RTC as scheduled.
== END 2022-09-29 13:36 | disposition home or self-care (01) ==
PROVIDERS: Anesthesiology; PCP Family Medicine; Referring Provider Podiatrist Foot & Ankle Surgery; Visit Provider Podiatrist Foot & Ankle Surgery
PROC: (CPT 28285; principal; 2022-09-29 07:45)
PROC: (CPT 27691; 2022-09-29 07:45)
DX: M86.271 Subacute osteomyelitis, right ankle and foot (principal); M20.41 Other hammer toe(s) (acquired), right foot; E11.621 Type 2 diabetes mellitus with foot ulcer; L97.519 Non-pressure chronic ulcer of other part of right foot with unspecified severity; E11.42 Type 2 diabetes mellitus with diabetic polyneuropathy
CPT/HCPCS: 28825; 28285 ×2; 28755; 85027; 87070; 87075; 87077; 87186; 87205; J0690; J1170; J2405; J2704; J3010

== ENCOUNTER → 2022-10-10 13:21 | Outpatient (CLI) | payer MEDICARE, SELFPAY ==
--- NOTE | 2022-10-10 | DI.RAD.S_ITS ---
PROCEDURE: XR FOOT RT MIN 3V INDICATIONS: post-op evaluation of right foot TECHNIQUE: 3 views of the foot were acquired. COMPARISON: [facility], CR, XR TOE RT MIN 2V, 07/29/2022, 12:37. [facility] ([place]), CR, XR FOOT RT MIN 3V, 03/19/2022, 10:35. FINDINGS: Bones: Status post 1st metatarsus osteotomy and medial bunionectomy with placement of a micro fixation screw. Interval 1st interphalangeal arthrodesis with placement of 2 partially threaded fixation screws. Interval 2nd and 3rd proximal phalangeal osteotomies with placement of fixation hardware. Background osteoarthritic changes redemonstrated. Soft tissues: No tibiotalar joint effusion. Achilles tendon appears normal. IMPRESSION: 1. Postsurgical sequelae; otherwise no change from prior exam. Dictated by: Eric CUMMINGS Interpreted: Ramsey Andersen MD on 10/10/2022 at 14:11 Transcribed by: YELENA on 10/10/2022 at 14:13 Approved by: Ramsey Adnersen M.D. on 10/20/2022 at 17:47
== END ==
PROVIDERS: PCP Family Medicine; Referring Provider Podiatrist Foot & Ankle Surgery; Visit Provider Podiatrist Foot & Ankle Surgery
DX: Z48.89 Encounter for other specified surgical aftercare (principal)
CPT/HCPCS: 73630

== ENCOUNTER → 2022-11-14 13:22 | Outpatient (CLI) | payer MEDICARE, SELFPAY ==
--- NOTE | 2022-11-14 13:23 | DI.MG.S_ITS ---
BILATERAL DIGITAL SCREENING MAMMOGRAM 3D/2D WITH CAD: 11/14/2022 CLINICAL: Routine screening. No prior exams were available for comparison. Both breasts are heterogeneously dense, which may obscure small masses (category c / 51-75% glandular tissue). Current study was also evaluated with a Computer Aided Detection (CAD) system. No significant masses, calcifications, or other findings are seen in either breast. IMPRESSION: NEGATIVE There is no mammographic evidence of malignancy. A 1 year screening mammogram is recommended. Based on the Tyrer Cuzick model (a risk assessment model) the patient's lifetime risk is 7.4% and her 10 year risk is 5.6%. According to the ACR, ACS, and NCCN guidelines, an annual breast MRI exam along with mammogram is recommended if the patient's lifetime risk is 20% or greater. This exam was interpreted at Station ID: [id number]. NOTE: For mammograms, a report in lay terms will be sent to the patient. Approximately 15% of breast malignancies will not be visualized mammographically. In the management of a palpable breast mass, a negative mammogram must not discourage biopsy of a clinically suspicious lesion. Electronically Signed By: Corby keene/compa:11/14/2022 16:08:31 letter sent: Normal Exam ACR BI-RADS Category 1: Negative 3341F
== END ==
PROVIDERS: PCP Family Medicine; Referring Provider Family Medicine; Visit Provider Family Medicine
DX: Z12.31 Encounter for screening mammogram for malignant neoplasm of breast (principal)
CPT/HCPCS: 77063; 77067

== ENCOUNTER → 2022-12-16 11:08 | Outpatient (CLI) | payer MEDICARE, SELFPAY ==
[2022-12-16 19:02] LABS: HEMOLYSIS < 15 (0-50); Iron 104 ug/dL (37-170); Reticulocyte Count, Percent 0.9 % (1.1-2.6)
[2022-12-16 19:06] LABS: Alanine Aminotransferase 26 IU/L (<35); Albumin 4.3 g/dL (3.5-5.0); Albumin Globulin Ratio 1.3 (1.0-2.8); Alkaline Phosphatase 217 U/L (38-126); Aspartate Aminotransferase 36 IU/L (14-36); BUN Creatinine Ratio 17.3 (6-22); Bilirubin Total 0.4 mg/dL (0.2-1.3); Blood Urea Nitrogen 24 mg/dL (7-17); Calcium 9.9 mg/dL (8.4-10.2); Carbon Dioxide 23 mmol/L (22-32); Chloride 102 mmol/L (98-107); Estimated Glomerular Filt Rate 40 mL/min (>60); Globulin 3.2 g/dL (1.7-4.1); Glucose 122 mg/dL (80-110); HEMOLYSIS < 15 (0-50); Potassium 4.5 mmol/L (3.4-5.1); Sodium 136 mmol/L (137-145); Total Protein 7.5 g/dL (6.3-8.2)
[2022-12-16 19:13] LABS: Hemoglobin A1C% w Est Avg Glu 5.9 % (4.0-6.0)
[2022-12-16 19:16] LABS: Percent Iron Saturation 35 % (15-50); Total Iron Binding Capacity 299 ug/dL (265-497); Transferrin 201 mg/dL (206-381)
[2022-12-16 19:30] LABS: Add Manual Diff / Slide Review NO; Basophils Absolute Auto 0 /uL (0-100); Eosinophils Absolute Auto 0 /uL (0-450); Eosinophils Percent Auto 0.1 % (2-4); Hematocrit 35.6 % (36-46); Hemoglobin 11.9 g/dL (12.0-16.0); Lymphocytes Absolute Auto 1200 /uL (1100-4500); Lymphocytes Percent Auto 24.9 % (25-40); Mean Corpuscular HGB Conc 33.5 % (30-36); Mean Corpuscular Hemoglobin 28.9 PG (26-34); Mean Corpuscular Volume 86.3 fL (80-100); Monocytes Absolute Auto 200 /uL (0-900); Monocytes Percent Auto 4.9 % (3-14); Neutrophils Absolute Auto 3300 /uL (1500-7000); Neutrophils Percent Auto 69.1 % (50-75); Platelet Count 166 X10^3/uL (150-400); Red Blood Cell Count 4.12 X10^6/uL (4.0-5.2); Red Cell Distribution Width 14.9 % (11.6-14.8); White Blood Cell Count 4.8 X10^3/uL (4.5-11.0)
[2022-12-16 19:35] LABS: TSH w/ Reflex to FT4 0.36 uIU/mL (0.47-4.68)
[2022-12-16 19:39] LABS: Ferritin 74 ng/mL (11-264)
[2022-12-16 20:42] LABS: Free T4, Direct Thyroxine 1.35 ng/dL (0.78-2.19)
== END ==
PROVIDERS: PCP Family Medicine; Visit Provider Family Medicine
DX: E11.9 Type 2 diabetes mellitus without complications; E11.42 Type 2 diabetes mellitus with diabetic polyneuropathy; E11.22 Type 2 diabetes mellitus with diabetic chronic kidney disease; K74.60 Unspecified cirrhosis of liver; F10.20 Alcohol dependence, uncomplicated; R79.89 Other specified abnormal findings of blood chemistry
CPT/HCPCS: 80053; 82728; 83036; 83540; 83550; 84439; 84443; 85025; 85045

== ENCOUNTER → 2022-12-30 11:37 | Outpatient (CLI) | payer MEDICARE, SELFPAY ==
--- NOTE | 2022-12-30 | DI.RAD.S_ITS ---
PROCEDURE: XR FOOT RT MIN 3V INDICATIONS: Encounter for other specified surgical aftercare TECHNIQUE: 3 views of the foot were acquired. COMPARISON: [facility] ([place]), CR, XR FOOT RT MIN 3V, 10/31/2022, 14:11. FINDINGS: Bones: Stable 1st, 2nd and 3rd digit fixation hardware. Stable 1st metatarsal osteotomy changes. Pes planus deformity. Calcaneal bone spurs Soft tissues: No tibiotalar joint effusion. Achilles tendon appears normal. IMPRESSION: Stable postsurgical changes. Dictated by: Padmini Soria MD, PhD on 12/30/2022 at 13:25 Approved by: Padmini Soria MD, PhD on 12/30/2022 at 13:27
== END ==
PROVIDERS: PCP Family Medicine; Referring Provider Podiatrist Foot & Ankle Surgery; Visit Provider Podiatrist Foot & Ankle Surgery
DX: Z48.89 Encounter for other specified surgical aftercare (principal)
CPT/HCPCS: 73630

== ENCOUNTER → 2023-01-26 09:00 | Outpatient (CLI) | payer MEDICARE, SELFPAY ==
[2023-01-26 19:21] LABS: BUN Creatinine Ratio 28.3 (6-22); Blood Urea Nitrogen 26 mg/dL (7-17); Calcium 10.1 mg/dL (8.4-10.2); Carbon Dioxide 27 mmol/L (22-32); Chloride 103 mmol/L (98-107); Cholesterol 154 mg/dL (140-199); Estimated Glomerular Filt Rate > 60 mL/min (>60); Glucose 147 mg/dL (80-110); HDL Cholesterol 79 mg/dL (40-60); HEMOLYSIS < 15 (0-50); LDL Cholesterol Calculated 61 mg/dL (<100); Potassium 4.2 mmol/L (3.4-5.1); Sodium 137 mmol/L (137-145); Triglycerides 70 mg/dL (35-150)
[2023-01-26 19:50] LABS: Thyroid Stimulating Hormone 0.523 uIU/mL (0.47-4.68)
== END ==
PROVIDERS: PCP Family Medicine; Visit Provider Family Medicine
DX: E11.9 Type 2 diabetes mellitus without complications (principal); E11.42 Type 2 diabetes mellitus with diabetic polyneuropathy; E11.22 Type 2 diabetes mellitus with diabetic chronic kidney disease; K74.60 Unspecified cirrhosis of liver; F10.20 Alcohol dependence, uncomplicated; R79.89 Other specified abnormal findings of blood chemistry
CPT/HCPCS: 80048; 80061; 84443

== ENCOUNTER → 2023-03-13 12:17 | Outpatient (CLI) | payer MEDICARE, SELFPAY ==
[2023-03-13 13:48] LABS: Add Manual Diff / Slide Review NO; Basophils Absolute Auto 0 /uL (0-100); Basophils Percent Auto 0.4 % (0-2); Eosinophils Absolute Auto 0 /uL (0-450); Eosinophils Percent Auto 0.1 % (2-4); Hematocrit 35.4 % (36-46); Hemoglobin 12.1 g/dL (12.0-16.0); Lymphocytes Absolute Auto 1300 /uL (1100-4500); Lymphocytes Percent Auto 21.5 % (25-40); Mean Corpuscular HGB Conc 34.1 % (30-36); Mean Corpuscular Hemoglobin 28.9 PG (26-34); Mean Corpuscular Volume 84.8 fL (80-100); Monocytes Absolute Auto 400 /uL (0-900); Monocytes Percent Auto 7.2 % (3-14); Neutrophils Absolute Auto 4200 /uL (1500-7000); Neutrophils Percent Auto 70.8 % (50-75); Platelet Count 128 X10^3/uL (150-400); Red Blood Cell Count 4.18 X10^6/uL (4.0-5.2); Red Cell Distribution Width 14.7 % (11.6-14.8)
[2023-03-13 14:04] LABS: Albumin 4.2 g/dL (3.5-5.0); BUN Creatinine Ratio 24.2 (6-22); Blood Urea Nitrogen 24 mg/dL (7-17); Calcium 9.7 mg/dL (8.4-10.2); Carbon Dioxide 27 mmol/L (22-32); Chloride 101 mmol/L (98-107); Estimated Glomerular Filt Rate > 60 mL/min (>60); Glucose 137 mg/dL (80-110); HEMOLYSIS < 15 (0-50); Potassium 4.1 mmol/L (3.4-5.1); Sodium 137 mmol/L (137-145)
[2023-03-13 14:13] LABS: Hemoglobin A1C% w Est Avg Glu 6.3 % (4.0-6.0); Prealbumin 18.3 mg/dL (17.6-36.0)
[2023-03-13 17:31] LABS: Vitamin D 25 Hydroxy (D3) 51.5 ng/mL (30.0-100.0)
== END ==
LOC: LAB 12:19
PROVIDERS: PCP Family Medicine; Referring Provider Orthopaedic Surgery Adult Reconstructive Orthopaedic Surgery; Visit Provider Orthopaedic Surgery Adult Reconstructive Orthopaedic Surgery
DX: Z01.818 Encounter for other preprocedural examination (principal); E55.9 Vitamin D deficiency, unspecified; R73.9 Hyperglycemia, unspecified; Z01.812 Encounter for preprocedural laboratory examination; R77.0 Abnormality of albumin
CPT/HCPCS: 36415; 80048; 82040; 82306; 83036; 84134; 85025; 93005

== ENCOUNTER 2023-04-13 10:29 | Day surgery (SDC) | payer MEDICARE, SELFPAY ==
[2023-04-08 13:51] VITALS: BMI 28.1
[2023-04-13] VITALS (14 sets, daily range): BP systolic 111–155; BP diastolic 53–81; PULSE 76–109; RESP 14–18; TEMP 35.7–36.5; O2SAT 96–100; BMI 28.1
--- NOTE | 2023-04-13 06:00 | DI.RAD.S_ITS ---
PROCEDURE: XR KNEE RT 1TO2V INDICATIONS: TKA TECHNIQUE: 2 view(s) of the knee acquired. COMPARISON: None. FINDINGS: Bones: Patient is status post knee joint arthroplasty. Hardware components are in expected positions. Visualized bony structures are intact. Soft tissues: Overlying postoperative changes are noted. IMPRESSION: Expected post-operative appearance of a knee arthroplasty. Dictated by: Adryan Martell M.D. on 04/13/2023 at 16:22 Approved by: Adryan Martell M.D. on 04/13/2023 at 16:22
[2023-04-13] MEDS: ACETAMINOPHEN 325 MG TABLET 975 MG PO (10:45)
[2023-04-13] MEDS: LACTATED RINGERS 1,000 ML 42 ML IV (10:45)
[2023-04-13] MEDS: MELOXICAM 7.5 MG TABLET PO ×2 (10:45→10:46)
--- NOTE | 2023-04-13 10:55 | PM.PREOP ---
Pre-operative Note Interval Note History & Physical reviewed/Exam performed by Physician: Yes Changes to H&P: No
[2023-04-13] MEDS: TRANEXAMIC ACID 1,000 MG VIAL 2000 MG INJ ×2 (11:35→12:42)
[2023-04-13] MEDS: CEFAZOLIN 2 GM/100 ML PREMIX 100 ML IV ×2 (11:38→19:59)
--- NOTE | 2023-04-13 11:48 | SUR.OPER ---
Supine on padded OR bed. Pillow under head, arms secured on padded armboards <90 degree abduction. Safety belt across torso. Left leg secured with tape over blanket over lower leg. Operative leg secured in Steve positioner. Foam padded brace at thigh of operative leg.
[2023-04-13] MEDS: ROPIVACAINE/EPI/CLONIDINE/KET 50 ML SYRINGE INJ (11:55)
--- NOTE | 2023-04-13 13:00 | P.OP_ITS ---
Operative Date/Time/Diagnoses Date of procedure: 04/13/23 Pre-op diagnosis: Right knee arthritis Post-op diagnosis: same Procedure & Clinicians Procedure: Right total knee arthroplasty Same procedure as scheduled: Yes Surgeon: Germán Santa [employer] Trimmer: Chepe Roa Anesthesia Type: General, Spinal, Peripheral nerve block and Local Operative Notes Estimated Blood Loss (mL): 150 Tourniquet time (min): 56 Procedure in detail: Implants: Tyler Persona Medial Congruent Total Knee Arthroplasty: * Size 9 Cruciate Retaining Femoral Component * Size E Tibial Component with 14 x 30 stem extension * Size 10 Medial Congruent Polyethylene Insert * Unresurfaced Patella Procedure Summary: Varus knee with significant osteophytes. Exposure of the tibia necessitated what was functionally a medial reduction osteotomy. The knee registered at 3? of tightness medially in full extension after initial cuts however it would open to a symmetric 9? in both varus and valgus so additional releases were not performed. Femoral rotation balanced at 1 degree of external rotation. Extremely poor bone quality was noted so a short stem was used Procedure in Detail: This patient was seen preoperatively and evaluated for knee pain which was refractory to numerous nonoperative treatment modalities. Their hip pain correlated with radiographic changes demonstrating significant degeneration in the knee joint. The risks and benefits of continued nonoperative management versus operative management were discussed at length and all of the patient?s questions were answered. Additional educational materials providing further details beyond our discussion in clinic were provided via a publicly available patient education video which included the incidence of medical complications associated with total knee arthroplasty, reasons for revision following total knee arthroplasty, and patient satisfaction rates following total knee arthroplasty. That video can be accessed at [email or web address] . With this understanding of the risks inherent to the procedure, the patient elected to move forward with operative management. Following preoperative optimization, the patient was scheduled for surgery. The patient was met in the preoperative holding area the day of the procedure and all questions were answered. The patient?s nares were swabbed with betadine in order to decolonize them from MRSA. Informed consent was signed and the operative limb was marked with indelible ink.? The patient was brought back to the operating room where anesthesia was induced. The patient was transferred to the operating table and all bony prominences were padded. The operative site was prepped and draped in the usual sterile fashion. A second prep stick was utilized following drape placement. The incision was marked corresponding to the medial aspect of the tibial tubercle and the patella. Ioban was wrapped circumferentially around the knee. Prior to incision, tranexamic acid and cefazolin were administered. Templating images were displayed. A timeout procedure was performed verifying the patient?s identity, medical comorbidities, allergies, relevant medications, anesthesia type and the surgical plan. All present were in agreement. The assistance of a physician pharmacist assistant was required for positioning, room setup, soft tissue retraction and wound closure. Without this assistance, the procedure would have been significantly more challenging and time consuming.?? The tourniquet was inflated prior to incision. I made an anterior incision over the knee, dissected through the subcutaneous tissues and identified the lateral border of the VMO. Medial and lateral soft tissue flaps were developed. A medial parapatellar arthrotomy was performed ensuring that adequate capsular tissue would remain for closure at the conclusion of the procedure. The hip was brought into extension and the medial soft tissues were released off the joint line of the tibia. Tissue overlying the distal anterior femur was released to allow for later assessment for anterior notching but left in place. A portion of the retropatellar fat pad was excised while protecting the patellar tendon. The patella was everted. The patella was rotation. Osteophytes were excised and a lateral facetectomy was performed. The patella was released from its everted position.?? I flexed the knee to 90 degrees and placed retractors to allow access to the notch. An opening reamer was used to gain access to the femoral canal and an i ntramedullary aidan was introduced into the canal. Diaphyseal fit was obtained in order to allow a distal femoral resection at 5 degrees relative to the anatomic axis, thereby aiming to achieve mechanical alignment of the eventual implant. A +2 resection was planned and assessed using an felipe wing. I then made the cut using a sagittal saw. This provided additional access to the femoral notch. The ACL and PCL were excised. Retractors were placed on the lateral and medial tibia. I hyperflexed the knee while externally rotating it to sublux the tibia anteriorly. I placed a PCL retractor posteriorly and used this to provide additional anterior subluxation. The remainder of the PCL root was released. An intramedullary reamer was used in the ACL footprint to provide access to the tibial canal. An extramedullary guide was positioned to allow a resection perpendicular to the anatomic and mechanical axes of the tibia, thereby aiming to achieve mechanical alignment of the eventual implant. A +4 resection off the medial tibia was planned and the tibial cutting jig was pinned in place. I evaluated the cut depth, varus-valgus alignment and slope of the planned tibial resection and deemed them satisfactory. I cut the tibia with a sagittal saw while using retractors to protect the MCL, patellar tendon, and posterolateral structures.? The knee was repositioned in extension and the Fuzion soft tissue balancing gauge was introduced. This demonstrated that there was equal tension in the medial and lateral compartments of the knee with the knee in full extension and no additional soft tissue releases were necessary. When 50 pounds of force was applied to the Fuzion device, the extension gap opened to 10 mm. I moved the knee into 90 degrees of flexion, and the Fuzion device was recalibrated by removing a 9 mm claudette to allow assessment of the flexion gap. The Fuzion was placed perpendicular to the resected surface of the tibia and the resected surface of the distal femur. Fifty pounds of traction was applied to match the tension of the extension gap. This externally rotated the femur to 1 degrees. Pins were placed in the 10 mm holes. The measured resection guide was placed over the pins to allow sizing. Appropriate sizing was determined and a 4-in-1 block was placed. This was double checked using the Fuzion device to ensure that it would open to an equal distance as the extension gap when the same amount of force was applied. The Fuzion block was also used to assess flexion gap symmetry. An felipe wing was used to ensure there would be no anterior notching. Retractors were placed to protect the soft tissues during resection. Captured cuts were performed with a sagittal saw for the anterior and posterior femur as well as the corresponding chamfers.? Trial components were placed and the construct was assessed. Range of motion was assessed by ensuring the knee could achieve full extension and assessing maximum passive knee flexion by elevating the femur and allowing the heel to passively fall towards the buttock. Gap symmetry was assessed by stressing the medial and lateral compartments in both extension and flexion. Laxity was assessed in both extension and flexion and the polyethylene trial was adjusted with shims as necessary. Patellar tracking was assessed with knee flexion. Once satisfied with the construct, I moved forward with implant insertion. Lug holes were drilled in the femur and the tibia was prepped ensuring appropriate sizing and rotation relative to the tibial tubercle.?? The bony ends were irrigated and cement was prepared. Portions of the anterior chamfer cut were utilized as cement restrictors in the femur and tibia where intramedullar rods had been utilized. Cement was placed on the entirety of the undersurface of both the tibial and femoral components. Cement was placed onto the dry tibia and pressurized into the cancellous bone. I impacted the tibial component into place. Cement was removed. The tibia was reduced underneath the femur and placed cement onto the dry surface of the resected femur. I placed the femoral component as well as the intended polyethylene trial. Cement was removed from around the femur. I brought the knee into extension and manually pressurized the construct by pushing on the heel while the cement dried. The knee was bathed in a dilute mixture of betadine and peroxide. A mixture of Ropivacaine, Epinephrine, Clonidine and Toradol was infiltrated throughout the soft tissues into structures including the VMO, patellar tendon, quadriceps tendon, MCL and femoral periosteum. A low adductor canal block was also performed using this mixture unless one had been placed preoperatively by anesthesia. The knee was copiously irrigated with pulse lavage. Once cement had been allowed to dry the knee was again trialed. Range of motion was assessed by ensuring the knee could achieve full extension and assessing maximum passive knee flexion by elevating the femur and allowing the heel to passively fall towards the buttock. Gap symmetry was assessed by stressing the medial and lateral compartments in both extension and flexion. Laxity was assessed in both extension and flexion and the polyethylene trial was adjusted with shims as necessary. Patellar tracking was assessed with knee flexion. The tourniquet was let down and the polyethylene trial was removed. I inspected the knee inspected for excess cement and any residual bleeding. Once hemostasis was achieved I inserted the final polyethylene and ensured appropriate engagement of the dovetail locking mechanism.?? The arthrotomy was closed with absorbable interrupted suture ensuring that this extended to the top of the arthrotomy. This was backed up with running barbed suture throughout the arthrotomy. The skin was closed with 2-0 and 3-0 sutures. Surgical glue was applied and a soft dressing was placed.?The sponge, instrument and needle counts were reported as being correct at the end of the case.??No obvious complications occurred. The patient was transferred from the operating table back to a stretcher. The patient emerged from anesthesia without difficulty and was taken to the PACU in a stable condition.? Plan for aftercare: * Weightbearing as tolerated * Patient takes naltrexone for alcohol abstinence. We will utilize a multimodal pain regimen in an attempt to avoid the need for opioids and restart naltrexone as soon as possible postoperatively. As it is a weak opioid itself, this may provide some pain relief beyond the patient's multimodal pain regimen. Ketamine was utilized intraoperatively as an additional pain control aid * Mobilization as soon as the patient has recovered from anesthesia. If physical therapists are unavailable at the time the patient is ready to ambulate, then nursing staff should help patient ambulate * Aspirin 81 twice per day for DVT prophylaxis * Anticipate discharge home tomorrow * Follow up at [facility] in 2 weeks * Detailed postoperative instructions available at [email or web address]
--- NOTE | 2023-04-13 14:43 | PT-IP ANOTE ---
Received PT orders and completed chart review. Met with pt briefly who did not yet have good sensation or motor control of her operative limb. Plan to follow up for PT assessment on the morning of 04/14. Pt states she hopes [place] be [place].
--- NOTE | 2023-04-13 15:04 | OT.IPNOTE ---
Received OT orders and completed chart review. Per P.T., pt does not yet have good sensation or motor control of her operative limb. Plan to follow up for OT assessment on the morning of 04/14. Pt states she hopes to be discharged in [place].
[2023-04-13] MEDS: LACTATED RINGERS 1,000 ML 100 ML IV (15:11)
[2023-04-13] MEDS: IBUPROFEN 600 MG TABLET PO ×2 (15:12→19:57)
[2023-04-13] MEDS: OXYCODONE IR 5 MG TABLET PO ×2 (15:48→20:09)
[2023-04-13] MEDS: ACETAMINOPHEN 325 MG TABLET 650 MG PO (19:58)
[2023-04-13] MEDS: ASPIRIN EC 81 MG TABLET PO (20:09)
[2023-04-13] MEDS: DOCUSATE 100 MG CAPSULE PO (20:09)
[2023-04-13] MEDS: MELATONIN 3 MG TABLET 18 MG PO (20:09)
[2023-04-14 00:39] VITALS: BP 128/57; PULSE 74; RESP 18; TEMP 36.6; O2SAT 95
[2023-04-14] MEDS: IBUPROFEN 600 MG TABLET PO ×2 (00:41→09:08)
[2023-04-14] MEDS: ACETAMINOPHEN 325 MG TABLET 650 MG PO ×2 (00:41→09:07)
[2023-04-14] MEDS: LACTATED RINGERS 1,000 ML 100 ML IV (00:46)
[2023-04-14] MEDS: CEFAZOLIN 2 GM/100 ML PREMIX 100 ML IV (03:23)
[2023-04-14] MEDS: TRAMADOL 50 MG TABLET PO (03:28)
--- NOTE | 2023-04-14 04:25 | PC.NURSE ---
Pt ambulating to the bathroom with SBA and FWW. Taking adequate PO intake and urinating. IVF discontinue around 0420. Pt taking tylenol/ibuprofen every 6 hours. Did take one dose of 5 mg oxycodone and this am around 0300 she took 50 mg of Tramadol. Pt looking forward to being discharge early today around 1330 so that she can take the ferry to [facility].
[2023-04-14 04:50] VITALS: BP 132/63; PULSE 75; RESP 18; TEMP 36.6; O2SAT 94
[2023-04-14 05:27] LABS: Hematocrit 28.3 % (36-46); Hemoglobin 9.8 g/dL (12.0-16.0)
[2023-04-14 08:00] VITALS: BP 155/65; PULSE 84; RESP 18; TEMP 36.3; O2SAT 100
--- NOTE | 2023-04-14 09:00 | PT.IIE ---
Current Diagnoses Unilateral primary osteoarthritis, right knee (04/13/23) Surgery Performed Operation Date: 04/13/23 10:45 Actual Procedures p Total Knee Arthroplasty(Right) - Germán Santa MD Surgical History (Last Reviewed 04/14/23 @ 10:22 by Chepe Roa PA-C) Anesthesia History of left knee replacement (~07/28/16) Hx of foot surgery (09/29/22) Medical History (Last Reviewed 04/14/23 @ 10:22 by Chepe Roa PA-C) Alcohol use disorder Ankle pain Benign colon polyp Colon polyps (~2017) Foot pain Hearing loss (~2019) History of urinary incontinence Liver problem Rheumatoid arthritis Vision disorder Physical Therapy Inpatient Evaluation/Re-Eval M1 PT/OT-IP Prior Functional Status Start: 04/14/23 13:51 Freq: NEEDED Status: Active Protocol: Document 04/14/23 09:00 AB (Rec: 04/14/23 14:01 AB [id number]) Medical Review Prior Functional Status Medical History Reviewed Yes Communication able to make needs known Mobility and Gait pt stated that she was modified independent with all mobilities and ambulation without AD but started using a FWW ~ 2 weeks ago due to knee pain Social History Household Members family Living Arrangements House Number of Floors (Floors) One Floor Number of Stairs To Enter/Railing? No steps to enter Home Environment Standard Height Toilet,Walk in Shower Home Equipment Front Wheel Walker,Four Wheel Walker,Raised Toilet Seat Without Armrests,Shower Seat with Backrest,Hand Held Shower ,Seed Corn Manager Production,Grab Bars In Shower Additional Social History Comment pt has her sister and [place] to assist her at home M2 PT-IP Current Condition Start: 04/14/23 13:51 Freq: NEEDED Status: Active Protocol: Document 04/14/23 09:00 AB (Rec: 04/14/23 14:01 AB [id number]) Physical Therapy Current Condition Current Condition Evaluation Date 04/14/23 Treatment Diagnosis s/p R TKA;difficulty in walking Onset Date 04/13/23 M3 PT-IP Subjective Start: 04/14/23 13:51 Freq: NEEDED Status: Active Protocol: Document 04/14/23 09:00 AB (Rec: 04/14/23 14:01 AB [id number]) Subjective Physical Therapy Visit Type Type Initial Evaluation Visit Start Time 09:00 Visit Stop Time 09:32 Number of LEAD CARGO MOVER Visits 32 Physical Therapy Visit Comments Patient Comments agreeable to do PT Therapy Pain Assessment Pain When Pain Assessed At Rest Pain Present Pain Present Pain Reported Location Right Knee Intensity 7 Scale Used Numeric (0 - 10) Pain Management Techniques Apply Cold,Distraction, Elevation,Modification of Treatment,Re-positioning, Timing of Activity with Medications M4 PT-IP Mobility and Gait Start: 04/14/23 13:51 Freq: NEEDED Status: Active Protocol: Document 04/14/23 09:00 AB (Rec: 04/14/23 14:01 AB [id number]) PT-Bed Mobility Assessment Supine to Sit Supine to Sit Standby Assistance Sit to Supine Sit to Supine Standby Assistance PT-Transfer Assessment Sit to and From Stand Sit to and from Stand Standby Assistance,1 Person Assistance,Use of Upper Extremities Equipment Transfer Assistive Device Gait Belt,Front Wheeled Walker Orthotic/Prosthetic Devices or Brace: No Transfers Transfer Destination Chair Transfer Technique ambulated Transfer Ability Level of Assist Standby Assistance Comments Mobility Comments pt supine in bed and agreeable to do PT. obtained PLOF and home set up. OT already gave pt her post-op folder . Reviewed post-op folder conetents and HEP. pt completed supine to sit SBA. able to sit on EOB SBA. sit to stand from EOB SBA and ambulated in room using FWW ~ 40 ft SBA. pt requested to use the toilet. ambulated to the toilet and completed toileting SBA. sit to stand from the toilet using grab bar SBA and ambulated towards the sink using FWW SBA. able to maintain standing using FWW for support SBA while completing handwashing. pt ambulated to the chair using FWW SBA and agreed to sit up on the chair. positioned pt on the chair. call light and table placed within reach. Gait Assessment Gait Gait Assistance Required: Standby Assistance Distance (Feet) 40 Assistive Devices Assistive Device Gait Belt,Front Wheeled Walker Orthotic/Prosthetic Devices or Brace: No Gait Deviations General Gait Pattern Antalgic,Decreased Stride Length,Decreased Feet Clearance PT-Balance Assessment Sitting Balance and Reactions Static Sitting Balance Ability Normal Dynamic Sitting Balance Ability Good Standing Balance and Reactions Static Standing Balance Ability Fair Dynamic Standing Balance Ability Fair Device Used FWW M5 PT-IP Objective Assessments Start: 04/14/23 13:51 Freq: NEEDED Status: Active Protocol: Document 04/14/23 09:00 AB (Rec: 04/14/23 14:01 [id number]) Orientation Orientation/Cognition Level of Alertness Alert Orientation Name,Place,Situation Language Function Ability No Deficits Noted Safety Awareness Understands Safety Issues Memory Description No Deficits Noted Gross Range of Motion Lower Extremity ROM Impairments R knee flexion: ~ 60 deg Strength Lower Extremity Strength Assessment Right Impaired Hip 4-/5 Knee 4-/5 Sensation Assessment Sensation Gross Sensation WNL Muscle Tone Muscle Tone WNL Yes M6 PT-IP Treatment Start: 04/14/23 13:51 Freq: NEEDED Status: Active Protocol: Document 04/14/23 09:00 AB (Rec: 04/14/23 14:01 [id number]) Physical Therapy Treatment Exercises Exercises Heel Slides Education Education Provided Precautions,Weight Bearing Status,Post-Op Packet,Safety M7 PT-IP Assessment and Plan Start: 04/14/23 13:51 Freq: NEEDED Status: Active Protocol: Document 04/14/23 09:00 AB (Rec: 04/14/23 14:01 [id number]) PT Summary Assessment and Plan Potential Rehabilitation Potential Fair Status of Condition at Evaluation Stable Summary Impairments Pain,ROM,Strength,Balance, Coordination,Sensation,Tone, Cognition,Bed Mobility, Transfers,Gait,Activity Tolerance Assessment Summary pt is a 72 y/o F s/p R TKA POD 1. pt is WBAT. pt requiring SBA with mobility using FWW and plans to go home with her sister and brother in law to assist her. pt stated that she has outpt PT set up. pt may go home when medically stable. Goals Bed Mobility Goal Independent Transfer Goal Independent,Front Wheeled Walker Gait Goal Independent,Front Wheel Walker Gait Distance 300 Days to Meet Goals 5 Frequency of Treatment Frequency Of Treatment Twice a Day Treatment Plan Physical Therapy Treatment Plan Bed Mobility Training,Transfer Training,Gait Training, Therapeutic Exercise,Balance Retraining,Post Op Education, Discharge Planning,Hot or Cold Pack,Neuromuscular Re-ed, Coordination Retraining,Manual Therapy Weight Bearing Status Weight Bearing Status Weight Bear as Tolerated Allowed Weight Bearing Amount (enter % RLE WBAT or #) (%) Recommendations To Nursing Amount of Assist Needed Standby Assistance Discharge Recommendations PT Discharge Recommendations Home with Assistance, Outpatient PT Transportation Needs at Discharge Private Vehicle
--- NOTE | 2023-04-14 09:02 | OT.IP.EVAL ---
Current Diagnoses Unilateral primary osteoarthritis, right knee (04/13/23) Surgery Performed Operation Date: 04/13/23 10:45 Actual Procedures p Total Knee Arthroplasty(Right) - Germán Santa MD Past Medical History (Last Reviewed 04/14/23 @ 10:22 by Chepe Roa PA-C) Alcohol use disorder Ankle pain Benign colon polyp Colon polyps (~2017) Foot pain Hearing loss (~2019) History of urinary incontinence Liver problem Rheumatoid arthritis Vision disorder Surgical History (Last Reviewed 04/14/23 @ 10:22 by Chepe Roa PA-C) Anesthesia History of left knee replacement (~07/28/16) Hx of foot surgery (09/29/22) Occupational Therapy Inpatient Evaluation/Re-Eval M1 PT/OT-IP Prior Functional Status Start: 04/14/23 10:58 Freq: NEEDED Status: Active Protocol: Document 04/14/23 10:58 [facility] (Rec: 04/14/23 11:11 [facility] [id number]) Medical Review Prior Functional Status Communication Independent Mobility and Gait Pt use the FWW in the home at all times. Activities of Daily Living and IADL's Pt having more difficulty with ADL needs. Prior Functional Level (Other details) Pt lives in the mother in law suite in the back of her sister and brother in law's house located 20 ft from the house. Social History Household Members family Living Arrangements House Number of Floors (Floors) One Floor Number of Stairs To Enter/Railing? No steps to enter per pt. Home Environment Standard Height Toilet,Walk in Shower Home Equipment Front Wheel Walker,Four Wheel Walker,Raised Toilet Seat Without Armrests,Shower Seat with Backrest,Hand Held Shower ,Director Of Cardiology,Grab Bars In Shower Additional Social History Comment Pt states her family to assist her at home and already has outpt PT set-up. M2 OT-IP Current Condition Start: 04/14/23 10:58 Freq: Status: Active Protocol: Document 04/14/23 10:58 [facility] (Rec: 04/14/23 11:11 [facility] [id number]) Occupational Therapy Current Condition Current Condition Evaluation Date 04/14/23 Treatment Diagnosis S/P R TKA Diagnosis Onset Date 04/13/23 M3 OT- IP Subjective and Pain Start: 04/14/23 10:58 Freq: Status: Active Protocol: Document 04/14/23 10:58 [facility] (Rec: 04/14/23 11:11 [facility] [id number]) OT- Subjective Occupational Therapy Visit Type Type Initial Evaluation Visit Start Time 08:30 Visit Stop Time 09:02 Occupational Therapy Visit Comments Patient Comments Pt agreed to get up and get dressed. Patient/Caregiver Goals To go home. OT Pain Assessment Pain When Pain Assessed At Rest Pain Present Pain Present Pain Reported Location RLE Intensity 5 M4 OT- IP ADL's Start: 04/14/23 10:58 Freq: Status: Active Protocol: Document 04/14/23 10:58 [facility] (Rec: 04/14/23 11:11 [facility] [id number]) OT SKR-[id number]-Eytpasj General Evaluation Self-Feeding Ability Independent OT ADL-Grooming General Evaluation Grooming Ability Standby Assistance Areas Needing Assistance Retrieving/Set-up of Grooming Items OT ADL-Oral Care General Eval Oral Care Ability Independent OT ADL-Dressing General Eval Upper Body Dressing Ability Independent Lower Body Dressing Ability Moderate Assistance Comments OT Dressing Comments Assist for socks and get the heel of her rigth foot into her slip on shoes. OT ADL-Toileting General Evaluation Toileting Ability Standby Assistance Comments OT Toileting Comments Educated to taper water drinking at night and use of cell phone to call for assist. Pt states agrees to continue to wear pads. ALso educated pt to be mindful of her knee positioning during ADL needs. Suggested would be beneficial to get a BSC. OT ADL-Bathing Comments OT Bathing Comments Pt states to do at home. M5 OT- IP IADL's Start: 04/14/23 10:58 Freq: Status: Active Protocol: Document 04/14/23 10:58 [facility] (Rec: 04/14/23 11:11 [facility] [id number]) OT-Instrumental Activities of Daily Living Deficits IADL Deficits Identified Deficits Home Safety Awareness Awareness of Need for Assistance at Home Good Awareness Ability to Problem Solve Emergency Able to Problem Solve Situations Medication Management Medication Management Comments Pt's family to assist as needed. Money Management Money Management Comments Pt's family to assist as needed. Meal Preparation Meal Preparation Caregiver Provides Assist Risk Modeler Risk Modeler Caregiver Provides Assist M6 OT- IP Functional Cognition Start: 04/14/23 10:58 Freq: Status: Active Protocol: Document 04/14/23 10:58 [facility] (Rec: 04/14/23 11:11 [facility] [id number]) Cognitive Factors Limiting Selfcare Function Cognitive Ability Level of Alertness Alert Patient Orientation Name,Age,Birthday,Month,Date, Year,Day of Week,Place, Situation Attention Span Ability Capable of Focused Attention, Capable of Sustained Attention Ability to Follow Commands Able to Follow One Step Commands Cognitive Comments Cognitive Assessment Comments Pt able to follow commands for all ADl and mobility needs. OT- Vision and Hearing OT- Hearing Assessment OT- Hearing Assessment Use of Hearing Aids OT- Vision Assessment Visual Acuity Glasses All The Time Visual Attentiveness WFL Occular Pursuits WFL M7 OT- IP Mobility and Balance Start: 04/14/23 10:58 Freq: Status: Active Protocol: Document 04/14/23 10:58 [facility] (Rec: 04/14/23 11:11 [facility] [id number]) OT- Bed Mobility Assessment Supine to Sit Supine to Sit Assist Standby Assistance Sit to Supine Sit to Supine Assist Standby Assistance OT-Transfer Assessment Sit to and From Stand Sit to and from Stand Standby Assistance Transfers Transfer Ability Standby Assistance Technique Transfer Destination Bed,Toilet Comments Mobility Comments SBA with use for bed mobility and to be able to walk with the FWW in the room with good safety. OT- Balance Assessment Sitting Balance and Reactions Static Sitting Balance Ability Normal Dynamic Sitting Balance Ability Good Standing Balance and Reactions Static Standing Balance Ability Good Dynamic Standing Balance Ability Fair M8 OT- IP Objective Assessments Start: 04/14/23 10:58 Freq: Status: Active Protocol: Document 04/14/23 10:58 [facility] (Rec: 04/14/23 11:11 [facility] [id number]) OT Gross Range of Motion Upper Extremity Range of Motion Assessment Within Functional Limits OT Strength Upper Extremity Strength Assessment Within Functional Limits M9 OT- IP Assessment and Plan Start: 04/14/23 10:58 Freq: Status: Active Protocol: Document 04/14/23 10:58 [facility] (Rec: 04/14/23 11:11 [facility] [id number]) OT Summary Assessment and Plan Potential Rehabilitation Potential Excellent Analytic Complexity at Evaluation Low Summary OT Impairments Pain,Strength,Balance, Functional Mobility,Dressing, Toileting,Bathing,Toilet Transfers,Shower Transfers, Activity Tolerance Progress Towards Goals Progressing Toward Goals Assessment Summary Pt low complexity and main barrier is mainly pain. Pt to have supportive family to assist with her needs at home. Pt to go home with assist and already has outpt PT set-up. Goals Dressing Goal Independent,Director Of Cardiology Toileting Goal Independent Bathing Goal Standby Assistance Toilet Transfer Goal Independent Shower Transfer Goal Standby Assistance Days to Meet Goals 5 Frequency of Treatment Frequency Of Treatment Once a Day Treatment Plan OT Treatment Plan ADL Training,Functional Mobility,Patient/Family Education,Discharge Planning Discharge Recommendations OT Discharge Recommendations Home with Assistance, Outpatient PT Home Equipment Needs [facility] Transportation Needs at Discharge Private Vehicle
[2023-04-14] MEDS: DOCUSATE 100 MG CAPSULE PO (09:08)
[2023-04-14] MEDS: ASPIRIN EC 81 MG TABLET PO (09:08)
[2023-04-14] MEDS: lisinopriL 5 MG TABLET PO (09:09)
[2023-04-14] MEDS: OXYCODONE IR 5 MG TABLET PO ×2 (09:09→12:10)
[2023-04-14] MEDS: FUROSEMIDE 20 MG TABLET PO (09:09)
[2023-04-14] MEDS: MULTIVITAMIN 1 TABLET 1 TAB PO (09:09)
[2023-04-14] MEDS: allopurinoL 100 MG TABLET PO (09:15)
[2023-04-14] MEDS: FISH OIL 1,000 MG CAPSULE 1000 MG PO (09:16)
[2023-04-14] MEDS: ASCORBIC ACID 500 MG TABLET 250 MG PO (09:16)
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
--- NOTE | 2023-04-14 14:04 | CM.DANOTE ---
Patient is a 72 yo female who was admitted on 04/13/23 for RTKA. Pt has [facility] and [employer] for insurance and her PCP is Angelica Naidu on [facility]. EMR was reviewed. Per Ortho PA, pt medically stable to d/c home today after PT/OT and outpt f/u. No identified barriers to discharge. Per PT/OT, recommending safe d/c home with family assist and outpt PT. SW met bedside with pt and explained role and she confirms she lives on [facility] in a mother inl suite attached to her sister and brother inlaw's house. Pt is active and independent at baseline and uses a FWW for home use. Pt denies any hx of HH or SNF and confirms her sister Genia is her DPOA. Pt states her preference is to d/c home today via sister's POV around 1330 to catch the next ferry back to [facility] and pt confirms she already has outpt PT already set up. Pt denies any further needs or anticipated concerns. Plan: Patient to d/c home today via sister POV to catch the ferry back to [facility] and outpt f/u. No further SW needs at this time. KIMBERLY Montero Discharge Planning/Care Management CM Discharge Assessment Start: 04/14/23 14:02 Freq: Status: Active Protocol: Document 04/14/23 14:03 BF (Rec: 04/14/23 14:04 [id number]) Discharge Planning Assessment Assigned Chiropractor Assistant KIMBERLY Stallworth DPOA/Assigned Designee Name sister Genia Contact Information [phone] Advance Directives? No Advance Directives on File No History Provided By Patient,Medical Record Has Patient been admitted in last 30 No days? Prior Living Arrangements Apartment/Condo Comment MIL suite built on sister's home Household Members family Type of transporation used prior to Relies on Others admit Independent with ADL's Yes Is patient alert and oriented? Yes Needs Assistance With Home Chores / Shopping Caregiver for Another No Community Services used prior to Physical Therapy admission: DME Already Rented / Owned FWW / Walker Patient/Family Preference OP PT Therapy Barriers to Discharge No Discharge Plan Home Community Services Physical Therapy Transportation Arrangement sister and [place] to provide transport back on [facility] to [place] Referrals Initiated None needed Whiteboard Updated in Patient Room with Yes name and ext. # of Chiropractor Assistant Review Status In Process Please Provide Date Initial DC 04/14/23 Assessment Was Performed Next Review Type Continued Stay Review Pre-Anesthesia Assessment Start: 04/08/23 13:51 Freq: Status: Active Protocol: Document 04/08/23 13:51 CAB (Rec: 04/08/23 14:28 CAB [id number]) Pre-Anesthesia Assessment PAC Comment Pt advised to hold Naltrexone 3 days prior to surgery per surgeon Preferred Name Lucretia Patient Information Reviewed Via Phone Assessment Assessment Completed With Patient Diagnostic Results BMP/CMP,CBC,EKG Comment Labs/EKG @ [facility] 03/13/23 Primary Care Provider Angelica Naidu Comment PCP clearance form 03/03/23 scanned and in surgery folder for dos review Seen Specialist in Last 12 Months Yes Specialist Seen Orthopedist Primary Language Armenian Record Pressman Required No Height 177.8 cm Weight 88.904 kg Body Mass Index (BMI) 28.1 Hearing Ability Hearing Impaired,Use of Hearing Aid Visual Assist Glasses Dentition Type Teeth, Natural Present,Teeth, Missing Barriers to Learning Auditory Hx Anesthesia Reactions No Hx Family Anesthesia Reaction No Hx Malignant Hyperthermia No Hx Blood Transfusions Yes: s/p knee surgery 2016 Hx Blood Transfusion Reaction No Anesthesia Review Requested No 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 No Does patient have PHAN/SOB No Hx Sleep Apnea No CPAP/BIPAP use not prescribed Currently Taking a Beta Juan No Hx Chest Pain No Hx SOB No Hx Syncope or Dizziness No Anti-Coagulant Therapy No Has a Microfiche Camera Operator No Cardiac Testing No Hx Pacemaker/ICD No Pacemaker Rep Required? No Cardiac Clearance Received Not Applicable Diet Type At Home Regular Dysphagia No Gastrointestinal Symptoms None Bladder Pattern Incontinent Urinary Catheter Present No Hx Urinary Self Catheterization No Diabetes Yes HgbA1C 6.3 Date 03/13/23 Patient No Lactating No Hx Drug Resistant Organism No Presence of External or Internal Medical Yes: L TKA, right foot Devices Received a COVID vaccine? Yes Received all doses? Yes Marital Status Lives With family Current Living Arrangements House Comment Lives with sister and brother in-law Number of Floors (Floors) One Floor Support System Sibling(s) Comment Sister and brother in-law will assist with care at DC Does the Patient Have Assistance After Yes Surgery Patient Discharge Plan Description Return Home Comment Pt advised overnight length of stay per surgeon Additional comment Lives on [facility] Feels Safe in Current Environment Yes Been Physically Hurt or Threatened By a No Person in Current Environment Do you have thoughts of harming yourself None or others? Are you currently considering suicide? No Do you have a plan to hurt yourself or No Plan others? Do You Have Any Spiritual Beliefs That No May Affect Your HC Choices? Do You Have Any Cultural Practices That No May Affect Your HC Choices? Comment Confucianism Who Can We Speak to About Patient's Care Family, friends Identifying Code for Release of Patient Declines to issue Information Health Care Proxy/Next of Kin Genia nice) Health Care Proxy or [phone] Emergency Contact Name Genia () Emergency Contact or [phone] Advance Directives? No Advance Directives on File No Power of Carbon Paper Interleafer No PAC Instructions Do not shave/clip surgical site,Durable medical equipment ,Medications to take/avoid, Nasal antibiotic,No ETOH/ petroleum product on skin DOS, NPO,Post-op transportation,Pre -surgical wash,Sensory aids, Sturdy shoes/comfortable clothes,Do not bring valuables and remove jewelry
--- NOTE | 2023-04-14 16:04 | PC.NURSE ---
Discharge: Pt feels ready to d/c to home. She was seen by PA and given d/c instructions. Also seen by PT/OT and received their instructions. Pt did pass PT and may go home. She has been voiding w/out diff. Po pain meds have been effective. Tolerates diet w/out problems. Reviewed d/c packet and questions answered. Rx was esent and her sister will pick them up prior to picking her up. Pt declined hospital priority load pass, she has a medical card already and gets priority load. Pt voiced no concerns at time of d/c. D/c home via auto w/sister.
== END 2023-04-14 13:01 | disposition home or self-care (01) ==
LOC: OR 11:16 → AC 11:17
PROVIDERS: PCP Family Medicine; Referring Provider Orthopaedic Surgery Adult Reconstructive Orthopaedic Surgery; Visit Provider Orthopaedic Surgery Adult Reconstructive Orthopaedic Surgery
PROC: 0SRC0JZ Replacement of Right Knee Joint with Synthetic Substitute, Open Approach (ICD-10-PCS; CPT 27447; principal; 2023-04-13 10:45)
DX: M17.11 Unilateral primary osteoarthritis, right knee (principal); E11.22 Type 2 diabetes mellitus with diabetic chronic kidney disease; I12.9 Hypertensive chronic kidney disease with stage 1 through stage 4 chronic kidney disease, or unspecified chronic kidney disease; N18.9 Chronic kidney disease, unspecified; Z87.891 Personal history of nicotine dependence
CPT/HCPCS: 27447; 36415; 73560; 82962; 85014; 85018; 97161; 97165; 97535; C1776; A9270; J0330; J0690; J1100; J1885; J2250; J2405; J3010

== ENCOUNTER → 2023-04-21 09:30 | Outpatient (CLI) | payer MEDICARE, SELFPAY ==
[2023-04-13 14:17] VITALS: BMI 28.1
[2023-04-21 19:23] LABS: Add Manual Diff / Slide Review NO; Basophils Absolute Auto 0 /uL (0-100); Eosinophils Absolute Auto 0 /uL (0-450); Eosinophils Percent Auto 0.1 % (2-4); Hematocrit 32.6 % (36-46); Hemoglobin 10.9 g/dL (12.0-16.0); Lymphocytes Absolute Auto 800 /uL (1100-4500); Lymphocytes Percent Auto 15.8 % (25-40); Mean Corpuscular HGB Conc 33.5 % (30-36); Mean Corpuscular Hemoglobin 29.2 PG (26-34); Mean Corpuscular Volume 87.1 fL (80-100); Monocytes Absolute Auto 300 /uL (0-900); Monocytes Percent Auto 6.5 % (3-14); Neutrophils Absolute Auto 3700 /uL (1500-7000); Neutrophils Percent Auto 76.6 % (50-75); Platelet Count 130 X10^3/uL (150-400); Red Blood Cell Count 3.74 X10^6/uL (4.0-5.2); Red Cell Distribution Width 15.4 % (11.6-14.8); White Blood Cell Count 4.8 X10^3/uL (4.5-11.0)
[2023-04-21 19:30] LABS: HEMOLYSIS < 15 (0-50); Iron 87 ug/dL (37-170)
[2023-04-21 19:36] LABS: Alanine Aminotransferase 18 IU/L (<35); Albumin 3.8 g/dL (3.5-5.0); Albumin Globulin Ratio 1.3 (1.0-2.8); Alkaline Phosphatase 210 U/L (38-126); Aspartate Aminotransferase 33 IU/L (14-36); BUN Creatinine Ratio 18.8 (6-22); Bilirubin Total 1.1 mg/dL (0.2-1.3); Blood Urea Nitrogen 21 mg/dL (7-17); Calcium 9.3 mg/dL (8.4-10.2); Carbon Dioxide 26 mmol/L (22-32); Chloride 104 mmol/L (98-107); Cholesterol 150 mg/dL (140-199); Estimated Glomerular Filt Rate 52 mL/min (>60); Glucose 146 mg/dL (80-110); HDL Cholesterol 72 mg/dL (40-60); HEMOLYSIS < 15 (0-50); LDL Cholesterol Calculated 56 mg/dL (<100); Potassium 4.2 mmol/L (3.4-5.1); Sodium 138 mmol/L (137-145); Total Protein 6.8 g/dL (6.3-8.2); Triglycerides 109 mg/dL (35-150)
[2023-04-21 19:49] LABS: Percent Iron Saturation 32 % (15-50); Total Iron Binding Capacity 269 ug/dL (265-497); Transferrin 219 mg/dL (206-381)
[2023-04-21 20:10] LABS: Ferritin 95 ng/mL (11-264)
[2023-04-23 05:15] LABS: x Labcorp Estim. Avg Glu (eAG) 134 mg/dL (.); x Labcorp Hemoglobin A1c 6.3 % (4.8-5.6)
== END ==
PROVIDERS: PCP Family Medicine; Visit Provider Family Medicine
DX: E11.22 Type 2 diabetes mellitus with diabetic chronic kidney disease (principal); E11.9 Type 2 diabetes mellitus without complications; K74.60 Unspecified cirrhosis of liver; D63.8 Anemia in other chronic diseases classified elsewhere; I95.2 Hypotension due to drugs
CPT/HCPCS: 80053; 80061; 82728; 83036; 83540; 83550; 85025

== ENCOUNTER → 2023-05-05 12:13 | Outpatient (CLI) | payer MEDICARE, SELFPAY ==
[2023-04-13 14:17] VITALS: BMI 28.1
--- NOTE | 2023-05-05 12:16 | DI.RAD.S_ITS ---
PROCEDURE: XR TOE RT MIN 2V INDICATIONS: ULSER ON RIGHT TOES TECHNIQUE: 3 views of the right toe(s) acquired. COMPARISON: [facility], , XR TOE RT MIN 2V, 07/29/2022, 12:37. FINDINGS: Bones: Instrumentation in the 1st to 3rd proximal phalanges are appropriately positioned. Additional instrumented 1st metatarsal osteotomy there is well well-healed. Generalized decreased osseous mineralization noted. Subchondral cysts noted in the 1st metatarsal head Soft tissues: No suspicious soft tissue densities. IMPRESSION: First through 3rd digital ray instrumentation without evidence of hardware failure Approved by: Germán Goodman M.D. on 05/05/2023 at 19:32
== END ==
PROVIDERS: PCP Family Medicine; Referring Provider Podiatrist Foot & Ankle Surgery; Visit Provider Podiatrist Foot & Ankle Surgery
DX: L97.511 Non-pressure chronic ulcer of other part of right foot limited to breakdown of skin (principal)
CPT/HCPCS: 73660

== ENCOUNTER → 2023-05-11 09:43 | Outpatient (CLI) | payer MEDICARE, SELFPAY ==
[2023-04-13 14:17] VITALS: BMI 28.1
[2023-05-11 20:27] LABS: Creatinine Urine Random 44.2 mg/dL
[2023-05-11 20:33] LABS: Microalbumin Urine Random < 0.6 mg/dL (0-1.6)
== END ==
PROVIDERS: PCP Family Medicine; Visit Provider Family Medicine
DX: E11.22 Type 2 diabetes mellitus with diabetic chronic kidney disease (principal)
CPT/HCPCS: 82043; 82570

== ENCOUNTER → 2023-07-21 13:03 | Outpatient (CLI) | payer MEDICARE, SELFPAY ==
[2023-04-13 14:17] VITALS: BMI 28.1
[2023-07-21 19:23] LABS: Add Manual Diff / Slide Review NO; Basophils Absolute Auto 0 /uL (0-100); Eosinophils Absolute Auto 0 /uL (0-450); Eosinophils Percent Auto 0.2 % (2-4); Hematocrit 33.6 % (36-46); Hemoglobin 11.5 g/dL (12.0-16.0); Lymphocytes Absolute Auto 700 /uL (1100-4500); Lymphocytes Percent Auto 15.8 % (25-40); Mean Corpuscular HGB Conc 34.2 % (30-36); Mean Corpuscular Hemoglobin 29.8 PG (26-34); Mean Corpuscular Volume 86.9 fL (80-100); Monocytes Absolute Auto 400 /uL (0-900); Monocytes Percent Auto 8.4 % (3-14); Neutrophils Absolute Auto 3300 /uL (1500-7000); Neutrophils Percent Auto 74.6 % (50-75); Platelet Count 120 X10^3/uL (150-400); Red Blood Cell Count 3.87 X10^6/uL (4.0-5.2); Red Cell Distribution Width 14.5 % (11.6-14.8); White Blood Cell Count 4.4 X10^3/uL (4.5-11.0)
[2023-07-21 19:29] LABS: Hemoglobin A1C% w Est Avg Glu 6.8 % (4.0-6.0)
[2023-07-21 19:39] LABS: Alanine Aminotransferase 20 IU/L (<35); Albumin 4.2 g/dL (3.5-5.0); Albumin Globulin Ratio 1.6 (1.0-2.8); Alkaline Phosphatase 241 U/L (38-126); Aspartate Aminotransferase 33 IU/L (14-36); BUN Creatinine Ratio 28.4 (6-22); Bilirubin Total 0.6 mg/dL (0.2-1.3); Blood Urea Nitrogen 27 mg/dL (7-17); Calcium 9.6 mg/dL (8.4-10.2); Carbon Dioxide 25 mmol/L (22-32); Chloride 105 mmol/L (98-107); Estimated Glomerular Filt Rate > 60 mL/min (>60); Globulin 2.7 g/dL (1.7-4.1); Glucose 149 mg/dL (80-110); HEMOLYSIS < 15 (0-50); Potassium 4.1 mmol/L (3.4-5.1); Sodium 137 mmol/L (137-145); Total Protein 6.9 g/dL (6.3-8.2)
== END ==
PROVIDERS: PCP Family Medicine; Visit Provider Family Medicine
DX: E11.22 Type 2 diabetes mellitus with diabetic chronic kidney disease (principal); D63.8 Anemia in other chronic diseases classified elsewhere; R79.89 Other specified abnormal findings of blood chemistry; D69.6 Thrombocytopenia, unspecified
CPT/HCPCS: 80053; 83036; 85025

== ENCOUNTER → 2023-08-21 13:46 | Outpatient (CLI) | payer MEDICARE, SELFPAY ==
[2023-04-13 14:17] VITALS: BMI 28.1
--- NOTE | 2023-08-21 13:47 | DI.US.S_ITS ---
PROCEDURE: US PERIPH VENOUS LOW EXTREM RT INDICATIONS: swelling and pain in R leg TECHNIQUE: Real-time imaging, as well as color and pulse Doppler interrogation, were performed of the lower extremity deep veins from the inguinal ligament to the popliteal fossa, with documentation of the visualized calf veins. COMPARISON: None. FINDINGS: The common femoral, femoral, popliteal, and the visualized calf veins are normally compressible, and free of intraluminal thrombus. Color and pulse Doppler demonstrate normal phasic intraluminal flow. There is normal augmentation response to distal compression maneuver. IMPRESSION: No findings of right lower extremity deep venous thrombosis. Dictated by: Serjio Jones M.D. on 08/21/2023 at 14:28 Approved by: Serjio Jones M.D. on 08/21/2023 at 14:28
== END ==
LOC: US 13:47
PROVIDERS: PCP Family Medicine; Referring Provider Family Medicine; Visit Provider Family Medicine
DX: M79.89 Other specified soft tissue disorders (principal)
CPT/HCPCS: 93971

== ENCOUNTER → 2023-11-03 10:04 | Outpatient (CLI) | payer MEDICARE, SELFPAY ==
[2023-04-13 14:17] VITALS: BMI 28.1
--- NOTE | 2023-11-03 | DI.RAD.S_ITS ---
PROCEDURE: XR TOE RT MIN 2V INDICATIONS: Osteomyelitis, unspecified TECHNIQUE: AP view of the foot and two views of the toes acquired. COMPARISON: [facility], CR, XR TOE RT MIN 2V, 05/05/2023, 12:45. [facility], CR, XR TOE RT MIN 2V, 07/29/2022, 12:37. FINDINGS: Bones: Postsurgical changes are again seen at the 1st through 3rd proximal phalanges. Hardware does not appear significantly changed when compared to the prior MRI. Stable postsurgical changes at the 1st metatarsal head. Generalized osteopenia. Chronic healed fracture deformity at the 5th metatarsal shaft. Possible osseous irregularity at the tuft of the 3rd distal phalanx is not optimally visualized due to positioning. Prior amputation of the 4th ray at the middle phalangeal base. Plantar calcaneal enthesophyte. Soft tissues: Nonspecific soft tissue edema in the distal 3rd toe. IMPRESSION: 1. Possible mild osseous irregularity of the tuft of the 3rd distal phalanx that is not well visualized but could indicate osteomyelitis. Adjacent soft tissue swelling is present. MRI could be performed for further evaluation if indicated clinically. 2. Otherwise stable exam with stable postsurgical changes. Approved by: Silvio Drummond M.D. on 11/03/2023 at 13:07
== END ==
LOC: RAD 10:07
PROVIDERS: PCP Family Medicine; Referring Provider Podiatrist Foot & Ankle Surgery; Visit Provider Podiatrist Foot & Ankle Surgery
DX: M79.89 Other specified soft tissue disorders (principal); M85.871 Other specified disorders of bone density and structure, right ankle and foot; S92.351S Displaced fracture of fifth metatarsal bone, right foot, sequela; M77.31 Calcaneal spur, right foot; Z89.421 Acquired absence of other right toe(s); Z98.890 Other specified postprocedural states
CPT/HCPCS: 73660

== ENCOUNTER → 2023-11-11 12:01 | Outpatient (CLI) | payer MEDICARE, SELFPAY ==
[2023-11-10 10:27] VITALS: BMI 28.1
[2023-11-11 19:34] LABS: INR 1.1 (0.9-1.3); Prothrombin Time 12.7 SECONDS (9.4-12.5)
[2023-11-11 19:37] LABS: PTT Partial Thromboplastin Tim 36 SECONDS (25.1-36.5)
[2023-11-11 19:45] LABS: Add Manual Diff / Slide Review NO; Basophils Absolute Auto 0 /uL (0-100); Basophils Percent Auto 0.9 % (0-2); Eosinophils Absolute Auto 0 /uL (0-450); Eosinophils Percent Auto 0.1 % (2-4); Hematocrit 35.8 % (36-46); Hemoglobin 12.1 g/dL (12.0-16.0); Lymphocytes Absolute Auto 800 /uL (1100-4500); Lymphocytes Percent Auto 17.8 % (25-40); Mean Corpuscular HGB Conc 33.8 % (30-36); Mean Corpuscular Hemoglobin 30.1 PG (26-34); Mean Corpuscular Volume 89.1 fL (80-100); Monocytes Absolute Auto 300 /uL (0-900); Monocytes Percent Auto 6.4 % (3-14); Neutrophils Absolute Auto 3200 /uL (1500-7000); Neutrophils Percent Auto 74.8 % (50-75); Platelet Count 116 X10^3/uL (150-400); Red Blood Cell Count 4.02 X10^6/uL (4.0-5.2); Red Cell Distribution Width 14.6 % (11.6-14.8); White Blood Cell Count 4.3 X10^3/uL (4.5-11.0)
[2023-11-11 19:56] LABS: Alanine Aminotransferase 26 IU/L (<35); Albumin 4.1 g/dL (3.5-5.0); Albumin Globulin Ratio 1.3 (1.0-2.8); Alkaline Phosphatase 206 U/L (38-126); Aspartate Aminotransferase 69 IU/L (14-36); BUN Creatinine Ratio 23.7 (6-22); Bilirubin Total 0.8 mg/dL (0.2-1.3); Blood Urea Nitrogen 23 mg/dL (7-17); Calcium 9.5 mg/dL (8.4-10.2); Carbon Dioxide 26 mmol/L (22-32); Chloride 102 mmol/L (98-107); Estimated Glomerular Filt Rate > 60 mL/min (>60); Globulin 3.2 g/dL (1.7-4.1); Glucose 131 mg/dL (80-110); HEMOLYSIS 19 (0-50); Potassium 4.3 mmol/L (3.4-5.1); Sodium 135 mmol/L (137-145); Total Protein 7.3 g/dL (6.3-8.2)
== END ==
PROVIDERS: PCP Family Medicine; Visit Provider Family Medicine
DX: E11.42 Type 2 diabetes mellitus with diabetic polyneuropathy (principal); E11.22 Type 2 diabetes mellitus with diabetic chronic kidney disease; D63.8 Anemia in other chronic diseases classified elsewhere; K74.60 Unspecified cirrhosis of liver; M86.9 Osteomyelitis, unspecified; D64.9 Anemia, unspecified; E11.621 Type 2 diabetes mellitus with foot ulcer; L97.509 Non-pressure chronic ulcer of other part of unspecified foot with unspecified severity; I10 Essential (primary) hypertension
CPT/HCPCS: 80053; 85025; 85610; 85730

== ENCOUNTER 2023-11-30 08:52 | Day surgery (SDC) | payer MEDICARE, SELFPAY ==
[2023-11-10 10:27] VITALS: BMI 28.1
[2023-11-25 12:04] VITALS: BMI 29.2
--- NOTE | 2023-11-30 05:41 | PM.PREOP ---
Pre-operative Note Interval Note History & Physical reviewed/Exam performed by Physician: Yes Changes to H&P: No
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
[2023-11-30 09:19] VITALS: BP 158/79; PULSE 83; RESP 16; TEMP 36.3; O2SAT 99; BMI 29.2
[2023-11-30] MEDS: LACTATED RINGERS 1,000 ML 42 ML IV (09:36)
[2023-11-30] MEDS: ACETAMINOPHEN 325 MG TABLET 975 MG PO (09:41)
[2023-11-30] MEDS: CEFAZOLIN 2 GM/100 ML PREMIX 100 ML IV (09:52)
--- NOTE | 2023-11-30 10:12 | SUR.OPER ---
Supine on padded OR bed, head on pillow, arms secured on padded arm boards at <90 degrees abduction, legs uncrossed,bump under right hip safety belt at thigh, tape over blanket over lower legs.
[2023-11-30] MEDS: LIDOCAINE 1% 20 ML INJ (10:19)
[2023-11-30] MEDS: SODIUM CHLORIDE IRRIG SOLUTION 3,000 ML, GENTAMICIN 240 MG IRR (10:20)
[2023-11-30] MEDS: VANCOMYCIN 1,000 MG VIAL 1000 MG TOP (10:34)
[2023-11-30 11:22] VITALS: BP 159/94; PULSE 90; RESP 19; TEMP 36.9; O2SAT 99
[2023-11-30 11:27] VITALS: BP 150/74; PULSE 84; RESP 20; O2SAT 91
[2023-11-30 11:37] VITALS: BP 106/73; PULSE 63; RESP 16; TEMP 36.1; O2SAT 93
[2023-11-30] MEDS: OXYCODONE IR 5 MG TABLET PO (11:40)
[2023-11-30 11:43] VITALS: BP 130/69; PULSE 83; RESP 20; O2SAT 95
--- NOTE | 2023-12-03 22:11 | PM.OP.1 ---
Operative Date/Time/Diagnoses Date of procedure: 11/30/23 Pre-op diagnosis: Right third toe osteomyelitis Post-op diagnosis: same Procedure & Clinicians Procedure: 1. Right third toe partial amputation Same procedure as scheduled: Yes Indications: 1. Recurrent diabetic ulcer and infection due to draining sinus Surgeon: Jakub Campbell Click Yes if Unassisted: Yes Anesthesia Type: General Operative Notes Findings: 1. Devitalized bone and tissue at distal tuft of right toe 3. Closure Type: primary Specimen(s): other (Right third toe before and after irrigation to microbiology for culture and sensitivity.) Estimated Blood Loss (mL): 10 Tourniquet time (min): 0 Procedure in detail: Patient was identified, brought into operating room on [facility], and transferred onto operating table in supine position. General anesthesia was administered, and local block was injected using 1% lidocaine. Right foot was then prepped and draped in usual sterile fashion, followed by official timeout with surgical team all in agreement. Attention was directed to right forefoot. A #15 scalpel was used to disarticulate the right third toe at distal interphalangeal joint. The removed toe was sent to microbiology for culture and sensitivity. Devitalized and scar tissues were noted to the open surgical site, which were sharply removed using a rongeur and a hemostat. Homeostasis was achieved with electrocautery. Open surgical site was irrigated using 3L saline mixed with 240 mg of gentamicin. Outer gloves were switched to sterile gloves, and all previously used instruments were set aside. Decision was made to remove a sliver of distal bone and sent to microbiology for culture and sensitivity of proximal margin, which appeared to show adequate bone stock. Procedure site was closed from deep to superficial using 3-0 vicryl. 3-0 nylon, and 4-0 nylon. Sharp removal of redundant skin was carried out to allow for closure with iris scissor, and an AmnioFix 2 x 3 cm was trimmed to size and implanted. Procedure sites were cleaned and dried. Iodine soaked Adpatic was used to cover the flap, followed by bulky sterile dressing. Patient tolerated procedure without complication and was transferred to PACU with vital signs stable. Complications: none Post-operative Condition: stable Disposition: same day surgery Plan for aftercare: NWB, elevate above heart, and ice around ankle to surgical limb. Keep dressing clean, dry, and intact until follow-up as scheduled.
== END 2023-11-30 13:20 | disposition home or self-care (01) ==
PROVIDERS: PCP Family Medicine; Referring Provider Podiatrist Foot & Ankle Surgery; Visit Provider Podiatrist Foot & Ankle Surgery
PROC: (CPT 28825; principal; 2023-11-30 10:15)
DX: M86.671 Other chronic osteomyelitis, right ankle and foot (principal); E11.22 Type 2 diabetes mellitus with diabetic chronic kidney disease; E11.621 Type 2 diabetes mellitus with foot ulcer; L97.516 Non-pressure chronic ulcer of other part of right foot with bone involvement without evidence of necrosis; N18.30 Chronic kidney disease, stage 3 unspecified; Z79.84 Long term (current) use of oral hypoglycemic drugs
CPT/HCPCS: 28825; 87070; 87075; 87077; 87186; 87205; J0690; J1100; J1170; J2405; J2704; J3010

== ENCOUNTER → 2024-01-13 11:56 | Outpatient (CLI) | payer MEDICARE, SELFPAY ==
[2023-11-10 10:27] VITALS: BMI 28.1
[2024-01-13 20:35] LABS: Add Manual Diff / Slide Review NO; Basophils Absolute Auto 0 /uL (0-100); Basophils Percent Auto 0.8 % (0-2); Eosinophils Absolute Auto 0 /uL (0-450); Eosinophils Percent Auto 0.2 % (2-4); Hematocrit 36.7 % (36-46); Hemoglobin 12.2 g/dL (12.0-16.0); Lymphocytes Absolute Auto 600 /uL (1100-4500); Lymphocytes Percent Auto 15.1 % (25-40); Mean Corpuscular HGB Conc 33.2 % (30-36); Mean Corpuscular Hemoglobin 30.1 PG (26-34); Mean Corpuscular Volume 90.6 fL (80-100); Monocytes Absolute Auto 400 /uL (0-900); Monocytes Percent Auto 9.9 % (3-14); Neutrophils Absolute Auto 3000 /uL (1500-7000); Platelet Count 111 X10^3/uL (150-400); Red Blood Cell Count 4.05 X10^6/uL (4.0-5.2); White Blood Cell Count 4.1 X10^3/uL (4.5-11.0)
[2024-01-13 20:43] LABS: Alanine Aminotransferase 26 IU/L (<35); Albumin 4.2 g/dL (3.5-5.0); Albumin Globulin Ratio 1.4 (1.0-2.8); Alkaline Phosphatase 190 U/L (38-126); Aspartate Aminotransferase 53 IU/L (14-36); BUN Creatinine Ratio 20.4 (6-22); Bilirubin Total 0.7 mg/dL (0.2-1.3); Blood Urea Nitrogen 22 mg/dL (7-17); Calcium 9.5 mg/dL (8.4-10.2); Carbon Dioxide 25 mmol/L (22-32); Chloride 104 mmol/L (98-107); Estimated Glomerular Filt Rate 54 mL/min (>60); Globulin 3.1 g/dL (1.7-4.1); Glucose 134 mg/dL (80-110); HEMOLYSIS < 15 (0-50); Hemoglobin A1C% w Est Avg Glu 6.6 % (4.0-6.0); Potassium 4.2 mmol/L (3.4-5.1); Sodium 136 mmol/L (137-145); Total Protein 7.3 g/dL (6.3-8.2)
== END ==
PROVIDERS: PCP Family Medicine; Visit Provider Family Medicine
DX: E11.9 Type 2 diabetes mellitus without complications (principal); D63.8 Anemia in other chronic diseases classified elsewhere
CPT/HCPCS: 80053; 83036; 85025

== ENCOUNTER → 2024-02-10 11:14 | Outpatient (CLI) | payer MEDICARE, SELFPAY ==
[2023-11-10 10:27] VITALS: BMI 28.1
--- NOTE | 2024-02-10 11:16 | DI.MG.S_ITS ---
BILATERAL DIGITAL SCREENING MAMMOGRAM 3D/2D WITH CAD: 02/10/2024 CLINICAL: Routine screening. Comparison is made to exams dated: 11/14/2022 mammogram - [facility], 09/12/2019 mammogram, 06/01/2017 mammogram, and 06/10/2018 mammogram - outside location. The breasts are heterogeneously dense, which may obscure small masses (category c / 51-75% glandular tissue). Current study was also evaluated with a Computer Aided Detection (CAD) system. No significant masses, calcifications, or other findings are seen in either breast. There has been no significant interval change. IMPRESSION: NEGATIVE There is no mammographic evidence of malignancy. A 1 year screening mammogram is recommended. Based on the Tyrer Cuzick model (a risk assessment model) the patient's lifetime risk is 7.0% and her 10 year risk is 5.7%. According to the ACR, ACS, and NCCN guidelines, an annual breast MRI exam along with mammogram is recommended if the patient's lifetime risk is 20% or greater. This exam was interpreted at Station ID: [id number]. NOTE: For mammograms, a report in lay terms will be sent to the patient. Approximately 15% of breast malignancies will not be visualized mammographically. In the management of a palpable breast mass, a negative mammogram must not discourage biopsy of a clinically suspicious lesion. Electronically Signed By: Seema hester/compa:02/10/2024 16:35:46 letter sent: Normal Exam ACR BI-RADS Category 1: Negative
--- NOTE | 2024-02-10 11:16 | DI.CT.S_ITS ---
PROCEDURE: CT ABDOMEN W CON INDICATIONS: adrenal mass fu, liver assessment due to cirrhosis ( HCC) TECHNIQUE: After the administration of intravenous contrast, 5 mm thick sections acquired from the diaphragms to the iliac crests. 5 mm thick coronal and sagittal reformats were acquired. For radiation dose reduction, the following was used: automated exposure control, adjustment of mA and/or kV according to patient size. COMPARISON: [facility], , MR ABDOMEN LIVER PROTOCOL, 08/19/2022, 17:03. FINDINGS: Image quality: Diagnostic. Lower Chest: No significant findings. ABDOMEN: Liver: Cirrhosis. Single phase contrast evaluation is suboptimal for detection of hepatocellular carcinoma. No large mass identified. Patent portal vein. Gallbladder: Significant distension of the gallbladder, without stones. Sludge is present. Biliary ducts: No biliary dilation. Pancreas: No ductal dilation. Spleen: Size is enlarged. Adrenal Glands: Stable 3.6 cm right adrenal nodule. Kidneys and Ureters: No hydronephrosis. No solid mass. No complex renal cystic lesion which requires follow up. Stomach and Bowel: Normal colonic caliber, without significant wall thickening. Colonic diverticulosis without evidence of diverticulitis. Peritoneum: No abnormal intraperitoneal fluid. No free air. Stable soft tissue nodularity in the right upper quadrant with laminated calcifications, probably a sequela of intraperitoneal fat necrosis. Ventral Wall: No hernia. Abdominal Nodes: No retroperitoneal or mesenteric adenopathy by size criteria. Vessels: Aorta and inferior vena cava are normal in size. Portosystemic collaterals are present. Bones: No aggressive osseous abnormality. IMPRESSION: Stable size and appearance of the right-sided adrenal lesion. Consider endocrinology follow-up given size of the lesion. Cirrhosis. Single phase contrast evaluation is suboptimal for detection of hepatocellular carcinoma. No large mass identified. Patent portal vein. Gallbladder hydrops without radiopaque stones. Findings could be related to patient's NPO status. If there is right upper quadrant pain, a HIDA scan could be useful for evaluation cholecystitis. Dictated by: Quincy Bowen M.D. on 02/10/2024 at 15:32 Approved by: Quincy Bowen M.D. on 02/10/2024 at 15:54
[2024-02-10 11:41] LABS: Estimated Glomerular Filt Rate 52 mL/min (>60)
== END ==
PROVIDERS: Radiology Diagnostic Radiology; PCP Family Medicine; Referring Provider Family Medicine; Visit Provider Family Medicine
DX: Z12.31 Encounter for screening mammogram for malignant neoplasm of breast (principal); R92.333 Mammographic heterogeneous density, bilateral breasts; E27.8 Other specified disorders of adrenal gland; K74.60 Unspecified cirrhosis of liver; K82.8 Other specified diseases of gallbladder; K57.90 Diverticulosis of intestine, part unspecified, without perforation or abscess without bleeding
CPT/HCPCS: 36415; 74160; 77063; 77067; 82565; Q9967

== ENCOUNTER → 2024-07-26 09:27 | Outpatient (CLI) | payer MEDICARE, SELFPAY ==
[2023-11-10 10:27] VITALS: BMI 28.1
[2024-07-26 19:07] LABS: Add Manual Diff / Slide Review NO; Basophils Absolute Auto 0 /uL (0-100); Basophils Percent Auto 0.8 % (0-2); Eosinophils Absolute Auto 0 /uL (0-450); Eosinophils Percent Auto 0.2 % (2-4); Hematocrit 35.9 % (36-46); Hemoglobin 12.2 g/dL (12.0-16.0); Lymphocytes Absolute Auto 500 /uL (1100-4500); Lymphocytes Percent Auto 14.1 % (25-40); Mean Corpuscular HGB Conc 34.1 % (30-36); Mean Corpuscular Hemoglobin 30.5 PG (26-34); Mean Corpuscular Volume 89.5 fL (80-100); Monocytes Absolute Auto 300 /uL (0-900); Monocytes Percent Auto 7.4 % (3-14); Neutrophils Absolute Auto 2900 /uL (1500-7000); Neutrophils Percent Auto 77.5 % (50-75); Platelet Count 121 X10^3/uL (150-400); Red Blood Cell Count 4.01 X10^6/uL (4.0-5.2); Red Cell Distribution Width 14.3 % (11.6-14.8); White Blood Cell Count 3.7 X10^3/uL (4.5-11.0)
[2024-07-26 19:14] LABS: Alanine Aminotransferase 24 IU/L (<35); Albumin 4.2 g/dL (3.5-5.0); Albumin Globulin Ratio 1.6 (1.0-2.8); Alkaline Phosphatase 222 U/L (38-126); Aspartate Aminotransferase 37 IU/L (14-36); Bilirubin Total 0.8 mg/dL (0.2-1.3); Blood Urea Nitrogen 26 mg/dL (7-17); Calcium 9.5 mg/dL (8.4-10.2); Carbon Dioxide 24 mmol/L (22-32); Chloride 103 mmol/L (98-107); Cholesterol 144 mg/dL (140-199); Estimated Glomerular Filt Rate 56 mL/min (>60); Globulin 2.7 g/dL (1.7-4.1); Glucose 157 mg/dL (70-99); HDL Cholesterol 78 mg/dL (40-60); HEMOLYSIS < 15 (0-50); LDL Cholesterol Calculated 50 mg/dL (<100); Potassium 4.6 mmol/L (3.4-5.1); Sodium 136 mmol/L (137-145); Total Protein 6.9 g/dL (6.3-8.2); Triglycerides 80 mg/dL (35-150)
[2024-07-26 19:17] LABS: Hemoglobin A1C% w Est Avg Glu 5.9 % (4.0-6.0)
[2024-07-26 19:42] LABS: Thyroid Stimulating Hormone 0.678 uIU/mL (0.47-4.68)
[2024-07-28 07:09] LABS: Alpha Fetoprotein 2.7 ng/mL (0.0-9.2)
== END ==
PROVIDERS: PCP Family Medicine; Visit Provider Family Medicine
DX: E11.22 Type 2 diabetes mellitus with diabetic chronic kidney disease (principal); K70.30 Alcoholic cirrhosis of liver without ascites; R25.2 Cramp and spasm; E11.42 Type 2 diabetes mellitus with diabetic polyneuropathy; E78.5 Hyperlipidemia, unspecified; I10 Essential (primary) hypertension; R79.89 Other specified abnormal findings of blood chemistry
CPT/HCPCS: 80053; 80061; 82105; 83036; 84443; 85025

== ENCOUNTER → 2024-08-02 08:49 | Outpatient (CLI) | payer MEDICARE, SELFPAY ==
[2023-11-10 10:27] VITALS: BMI 28.1
[2024-08-02 20:16] LABS: Creatinine Urine Random 109.39 mg/dL
[2024-08-02 20:21] LABS: Microalbumin Urine Random 1.6 mg/dL (0-1.6)
== END ==
PROVIDERS: PCP Family Medicine; Visit Provider Family Medicine
DX: E11.22 Type 2 diabetes mellitus with diabetic chronic kidney disease (principal); I12.9 Hypertensive chronic kidney disease with stage 1 through stage 4 chronic kidney disease, or unspecified chronic kidney disease; N18.30 Chronic kidney disease, stage 3 unspecified
CPT/HCPCS: 82043; 82570

== ENCOUNTER → 2025-01-02 13:19 | Outpatient (CLI) | payer MEDICARE, SELFPAY ==
[2023-11-10 10:27] VITALS: BMI 28.1
[2025-01-02 19:16] LABS: Add Manual Diff / Slide Review NO; Hematocrit 37.1 % (36-46); Hemoglobin 12.7 g/dL (12.0-16.0); Lymphocytes Absolute Auto 400 /uL (1100-4500); Mean Corpuscular HGB Conc 34.3 % (30-36); Mean Corpuscular Hemoglobin 30.8 PG (26-34); Mean Corpuscular Volume 89.8 fL (80-100); Platelet Count 126 X10^3/uL (150-400)
[2025-01-02 19:30] LABS: Alanine Aminotransferase 25 IU/L (<35); Albumin 4.4 g/dL (3.5-5.0); Albumin Globulin Ratio 1.4 (1.0-2.8); Alkaline Phosphatase 177 U/L (38-126); Blood Urea Nitrogen 23 mg/dL (7-17); Calcium 9.9 mg/dL (8.4-10.2); Carbon Dioxide 26 mmol/L (22-32); Chloride 99 mmol/L (98-107); Estimated Glomerular Filt Rate 58 mL/min (>60); Globulin 3.1 g/dL (1.7-4.1); Glucose 149 mg/dL (70-99); HEMOLYSIS 18 (0-50); Potassium 4.0 mmol/L (3.4-5.1); Sodium 134 mmol/L (137-145); Total Protein 7.5 g/dL (6.3-8.2)
[2025-01-02 19:31] LABS: Reticulocyte Count, Percent 1.4 % (1.1-2.6)
[2025-01-02 19:43] LABS: Hemoglobin A1C% w Est Avg Glu 5.7 % (4.0-6.0)
[2025-01-02 20:00] LABS: Ferritin 71 ng/mL (11-264)
== END ==
PROVIDERS: PCP Family Medicine; Visit Provider Family Medicine
DX: E27.8 Other specified disorders of adrenal gland (principal); K70.30 Alcoholic cirrhosis of liver without ascites; E11.22 Type 2 diabetes mellitus with diabetic chronic kidney disease; E11.42 Type 2 diabetes mellitus with diabetic polyneuropathy; I10 Essential (primary) hypertension
CPT/HCPCS: 80053; 82105; 82728; 83036; 85025; 85045

== ENCOUNTER → 2025-02-10 11:41 | Outpatient (CLI) | payer MEDICARE, SELFPAY ==
[2023-11-10 10:27] VITALS: BMI 28.1
--- NOTE | 2025-02-10 11:44 | DI.MG.S_ITS ---
MM screening mammo BI: 02/10/2025. BI-RADS: 1 CLINICAL: 74-year old female for bilateral screening mammogram. Tyrer-Cuzick lifetime risk of 6.2%. No personal or first-degree family history of breast cancer. PRIOR EXAMS 02/10/2024, 11/14/2022. MAMMOGRAPHY TECHNIQUE: 2D and 3D (tomosynthesis) digital mammographic views obtained, with additional images as needed for full coverage. Current study was also evaluated with a Computer Aided Detection (CAD) system. DENSITY C. The breasts are heterogeneously dense, which may obscure small masses. MAMMOGRAPHY FINDINGS Bilateral: No suspicious mass, asymmetry, microcalcification, or other abnormality seen. IMPRESSION: * No evidence of malignancy. RECOMMENDATIONS Bilateral * Annual screening mammography. OVERALL ASSESSMENT CATEGORY BI-RADS-1: Negative. The [employer] recommends annual screening mammography beginning at age 40 for women with average risk of breast cancer. ELECTRONICALLY SIGNED: Corby Kaiser M.D. on 02/12/2025 at 07:55:06 PM PT Interpreting Station ID: [id number]
--- NOTE | 2025-02-10 11:44 | DI.CT.S_ITS ---
PROCEDURE: CT ABDOMEN LIVER PROTOCOL INDICATIONS: adrenal mass, liver monitoring RO HCC TECHNIQUE: 4 phase scanning was performed. Non-contrast 5 mm axial sections acquired from the diaphragm to the iliac crests. Following the administration of intravenous contrast, 5 mm thick arterial-phase, portal venous-phase, and 5-minute delayed phase images were acquired through the liver. 5 mm thick coronal and sagittal reformats were performed. For radiation dose reduction, the following was used: automated exposure control, adjustment of mA and/or kV according to patient size. COMPARISON: [facility], CT, CT ABDOMEN W [facility], 02/10/2024, 11:49. FINDINGS: Image quality: Excellent. Lower chest: Clear lung bases. Heavy coronary artery calcification. ABDOMEN: Liver: Cirrhotic liver morphology with a nodular margin. No arterially enhancing liver lesion. No perihepatic ascites. Gallbladder: Markedly dilated gallbladder without calcifications seen. No significant change compared to prior. Biliary ducts: No biliary dilation. Pancreas: Mild pancreatic atrophy without visible calcifications or ductal dilatation. Uniform enhancement. Spleen: Mild splenomegaly at 14 cm in length. No significant change. There is a splenule at the splenic hilum. Adrenal Glands: Ovoid, smoothly marginated right adrenal gland mass measures 3.8 x 2.5 cm, stable compared to prior. No new adrenal nodules. Kidneys and Ureters: Symmetric enhancement. No nephrolithiasis or hydronephrosis. No visible mass or cyst requiring follow up. No hydroureter. Stomach and Bowel: Stomach and visible bowel loops are within normal limits. Occasional colonic diverticula seen Peritoneum: No abnormal intraperitoneal fluid. No free air. Ventral Wall: No hernia. Abdominal Nodes: No retroperitoneal or mesenteric adenopathy by size criteria. Vessels: The abdominal aorta, IVC, and portal vein are of normal caliber. Moderate abdominal aortic atherosclerotic calcification. Left upper quadrant/perisplenic varicosities. Similar extent compared to prior. Bones: No aggressive osseous abnormality. Degenerative disc and endplate changes in the upper lumbar spine. IMPRESSION: Cirrhotic liver with splenomegaly and varicosities indicating portal hypertension. No ascites or lesions suspicious for HCC. Stable right adrenal mass. Gallbladder hydrops without significant change. Dictated by: Simi Chow M.D. on 02/10/2025 at 17:16 Approved by: Simi Chow M.D. on 02/10/2025 at 17:27
[2025-02-10 12:19] LABS: Estimated Glomerular Filt Rate 58 mL/min (>60)
== END ==
LOC: CT 11:43
PROVIDERS: PCP Family Medicine; Referring Provider Family Medicine; Visit Provider Family Medicine
DX: Z12.31 Encounter for screening mammogram for malignant neoplasm of breast (principal); R92.333 Mammographic heterogeneous density, bilateral breasts; K70.30 Alcoholic cirrhosis of liver without ascites; E27.8 Other specified disorders of adrenal gland; I86.8 Varicose veins of other specified sites; K82.1 Hydrops of gallbladder; I70.0 Atherosclerosis of aorta; I25.10 Atherosclerotic heart disease of native coronary artery without angina pectoris; R16.1 Splenomegaly, not elsewhere classified; K86.89 Other specified diseases of pancreas
CPT/HCPCS: 36415; 74170; 77063; 77067; 82565; Q9967

== ENCOUNTER → 2025-02-21 10:03 | Outpatient (CLI) | payer MEDICARE, SELFPAY ==
[2023-11-10 10:27] VITALS: BMI 28.1
--- NOTE | 2025-02-21 10:05 | DI.RAD.S_ITS ---
PROCEDURE: XR FOOT RT MIN 3V INDICATIONS: Pain in right foot TECHNIQUE: 3 views of the foot were acquired. COMPARISON: [facility], CR, XR FOOT RT MIN 3V, 12/30/2022, 11:45. FINDINGS: Bones: Screw fixation of the 1st interphalangeal joint, with interval osseous fusion. There is mild periprosthetic lucency at the screw head in the 1st distal phalanx, new from prior exam. Status post bunionectomy with suture anchor at the 1st metatarsal neck. Fixation instrumentation at the 2nd proximal phalangeal diaphysis and at the 3rd proximal interphalangeal joint. Osseous fusion of the 2nd and 3rd proximal interphalangeal joint. The 3rd distal phalanx appears absent, which may be postprocedural versus posttraumatic. 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 Limited evaluation of the forefoot given patient positioning. Healed fracture of the 5th metatarsal diaphysis. Severe pes planus. Plantar calcaneal enthesophyte. Multiple soft tissue calcification in the plantar hindfoot, representing prior injury. Mild degenerative changes in the midfoot. No acute fracture or dislocation. Soft tissues: No tibiotalar joint effusion. Achilles tendon appears normal. IMPRESSION: Postprocedure changes. Periprosthetic lucency surrounding the screw head in the 1st distal phalanx, new from prior exam, may represent loosening. Additional chronic changes. Dictated by: Kate Park M.D. on 02/21/2025 at 12:44 Approved by: Kate Park M.D. on 02/21/2025 at 12:56
== END ==
PROVIDERS: PCP Family Medicine; Referring Provider Podiatrist Foot & Ankle Surgery; Visit Provider Podiatrist Foot & Ankle Surgery
DX: M79.671 Pain in right foot (principal); M21.41 Flat foot [pes planus] (acquired), right foot; M77.31 Calcaneal spur, right foot; Z98.890 Other specified postprocedural states
CPT/HCPCS: 73630